=== PATIENT | male | born 1955 | race Caucasian/White ===

== ENCOUNTER 2024-10-25 12:17 | Emergency (ER) | payer BC, SELFPAY ==
--- OUTSIDE RECORDS SUMMARY | 2024-09-16 08:00 | XMS_ITS | Encounter Summary ---
Author Organization [facility] Address [address] [place] [address] Care Team Providers Care Bevel Polisher Name Role Phone Elsewhere, Pcp Primary Care Provider Unavailabl e Reason for Visit * Reason Onset Date Comments Pre-visit Intake 09/16/2024 * Appointment Request (Routine) - Authorized Specialty Diagnoses / Procedures Referred By Contac t Referred To Contact Cardiovascular Disease Referral ID Status Reason Start Date Expiration Date V isits Requested Visits Authorized [id number] Authorized 06/29/2024 09/29/2025 1 1 Encounter Details Date Type Department Care Team (Latest Contact Info) Description 09/16/2024 8:00 AM CDT Clinical Communication Virtual Review in [address] [phone] Pre-visit Intake Social History Tobacco Use Types Packs/Day Years Used Date Smoking Tobacco: Never Smokeless Tobacco: Never Tobacco Cessation:Counseling Given: Not Answered Alcohol Use Standard Drinks/Week Comments Yes 0 (1 standard drink = 0.6 oz pure alcohol) very occasional - too many carbs! [facility] Utilities Answer Date Recorded In the past 12 months has th e [employer], gas, oil, or water [employer] threatened to shut off services in your home? No 09/17/2024 Hunger Vital Sign Answer Date Recorded Within the past 12 months, y ou worried that your food would run out before you got the money to buy more. Never true 09/18/19 25 Within the past 12 months, t he food you bought just didn't last and you didn't have money to get more. Never true 09/17/2024 PRAPARE - Transportation Answer Date Re corded In the past 12 months, has l ack of transportation kept you from medical appointments or from getting medications? No 05/2024 In the past 12 months, has l ack of transportation kept you from meetings, work, or from getting things needed for daily living? No 09/17/2024 Housing Stability Answer Date Recorded What is your living situation today? I have a [facility] place to live 09/17/2024 Sex and Gender Information Value Date Recorded Sex Assigned at Male 07/31/2023 9:29 PM CDT Legal Sex Male 10:14 AM CDT Gender Identity Male 07/31/2023 9:29 PM CDT Sexual Orientation Straight 07/31/2023 9: 29 PM CDT documented as of this encounter Plan of Treatment Upcoming Encounters Date Type Department Care Team (Latest Contact Info) Description 11/09/2024 11:00 AM CDT Appointment Department of Radiology, [facility], in [place], [place] [address] [place] [phone] Eva Wing M.B.B.S., Ph.D. [address] [place] [phone] 11/09/2024 4:30 PM CDT Comprehensive Visit Department of Cardiovascular Surgery in [address] [phone] Jaswant Wheat M.D. [address] [place] [phone] 11/09/2024 5:00 PM CDT Office Visit Department of Cardiovascular Surgery in [address] [phone] documented as of this encounter Visit Diagnoses Not on filedocumented in this encounter Care Teams Bevel Polisher Relationship Specialty Start Date End Date Elsewhere, Pcp PCP - General Internal Medicine 08/02/23 documented as of this encounter
--- OUTSIDE RECORDS SUMMARY | 2024-09-22 09:47 | XMS_ITS | Encounter Summary ---
Author Organization [facility] Address [address] [place] [address] Care Team Providers Care Director Selection And Administration Name Role Phone Elsewhere, Pcp Primary Care Provider Unavailabl e Encounter Details Date Type Department Care Team (Latest Contact Info) Description 09/22/2024 9:47 AM CDT - 09/22/2024 10:57 AM CDT Hospital Encounter Department of Laboratory Medicine and Pathology, [facility] in [place], [place] [address] [place] [phone] Eva Wing M.B.B.S., Ph.D. [address] [place] [phone] Stenosis Aortic Valve Acquired; Diabetes Mellitus Type 2 (HCC); Hypertension Essential Primary; Hyperlipidemia; Asthma Mild Persistent (HCC) Discharge Disposition: Home or Self Care Social History Tobacco Use Types Packs/Day Years Used Date Smoking Tobacco: Never Smokeless Tobacco: Never Alcohol Use Standard Drinks/Week Comments Yes 1 (1 standard drink = 0.6 oz pure alcohol) very occasional - too many carbs! [facility] Utilities Answer Date Recorded In the past 12 months has [employer], gas, oil, or water [employer] threatened to shut off services in your [...] your living situation today? I have a [facility] place to live 09/17/2024 Sex and Gender Information Value Date Recorded Sex Assigned at Male 07/31/2023 9:29 PM CDT Legal Sex Male 10:14 AM CDT Gender Identity Male 07/31/2023 9:29 PM CDT Sexual Orientation Straight 07/31/2023 9: 29 PM CDT documented as of this encounter Medications at Time of Discharge BD Nancy 2nd Gen Pen Needle 32 gauge x 5/32 needle 07/17/2023 calcium carbonate (TUMS) 500 mg (200 mg calcium) chewable tablet Chew 500 mg daily. 01/12/2022 cyanocobalamin (VITAMIN B12) 1,000 mcg tablet Take 1 tablet by mouth daily. 07/11/2016 empagliflozin (Jardiance) 25 mg tablet Take 1 tablet by mouth daily. 03/18/2015 ferrous sulfate 325 mg (65 mg iron) DR tablet Take 325 mg by mouth 4 (four) times a week. 07/11/2016 FreeStyle Juice 3 Sensor device 07/17/2023 insulin glargine-yfgn (Semglee) 100 unit/mL (3 mL) pen Inject 20 Units under the skin. 04/22/2024 lisinopriL (PRINIVIL,ZESTRI L) 20 mg tablet Take 1 tablet by mouth daily. 04/12/2023 lutein 10 mg tablet Take 10 mg by mouth daily. metFORMIN (GLUCOPHAGE) 1,000 mg tablet Take by mouth. 03/18/2015 pioglitazone (ACTOS) 30 mg tablet Take 1 tablet by mouth daily. 03/18/2015 ProAir HFA 90 mcg/actuation inhaler Inhale 90 mcg every 6 (six) hours as needed. 06/01/2016 Qvar RediHaler 80 mcg/actuation inhaler Inhale 2 puffs daily. 03/18/2015 sildenafil (REVATIO) 20 mg tablet use 2-4 tabs every 24 hours as needed for erectile dysfunction 05/14/2019 tirzepatide (Mounjaro) 2.5 mg/0.5 mL pen injector injection Inject 2.5 mg under the skin over 168 hr. 08/17/2024 vit C/E/Zn/coppr/lut ein/zeaxan (PRESERVISION AREDS-2 ORAL) Take 1 tablet by mouth daily. atorvastatin (Lipitor) 80 mg tablet Take 1 tablet by mouth daily. 11/28/2023 glipiZIDE (GLUCOTROL XL) 10 mg 24 hr tablet Take 1 tablet by mouth 2 (two) times a day before breakfast and dinner. 04/12/2023 documented as of this encounter Plan of Treatment Upcoming Encounters Date Type Department Care Team (Latest Contact Info) Description 11/09/2024 11:00 AM CDT Appointment Department of Radiology, [facility], in [place], [place] [address] [place] [phone] Eva Wing M.B.B.S., Ph.D. [address] [place] [phone] 11/09/2024 4:30 PM CDT Comprehensive Visit Department of Cardiovascular Surgery in [address] [phone] Jaswant Wheat M.D. [address] [place] [phone] 11/09/2024 5:00 PM CDT Office Visit Department of Cardiovascular Surgery in [address] [phone] documented as of this encounter Procedures Procedure Name Priority Date/Time Associated Diagnosis Comments LIPID PANEL, S Routine 09/22/2024 10:16 AM CDT Stenosis Aortic Valve Acquired Diabetes Mellitus Type 2 (HCC) Hypertension Essential Primary Hyperlipidemia Asthma Mild Persistent (HCC) NT-PRO B-TYPE NATRIURETIC PEPTIDE (BNP), S Routine 09/22/2024 10:16 AM CDT Stenosis Aortic Valve Acquired Diabetes Mellitus Type 2 (HCC) Hypertension Essential Primary Hyperlipidemia Asthma Mild Persistent (HCC) PROTHROMBIN TIME (PT), P Routine 09/22/2024 10:16 AM CDT Stenosis Aortic Valve Acquired Diabetes Mellitus Type 2 (HCC) Hypertension Essential Primary Hyperlipidemia Asthma Mild Persistent (HCC) CBC WITH DIFFERENTIAL, B Routine 09/22/2024 10:16 AM CDT Stenosis Aortic Valve Acquired Diabetes Mellitus Type 2 (HCC) Hypertension Essential Primary Hyperlipidemia Asthma Mild Persistent (HCC) SODIUM, S/P Routine 09/22/2024 10:16 AM CDT Stenosis Aortic Valve Acquired Diabetes Mellitus Type 2 (HCC) Hypertension Essential Primary Hyperlipidemia Asthma Mild Persistent (HCC) POTASSIUM, S/P Routine 09/22/2024 10:16 AM CDT Stenosis Aortic Valve Acquired Diabetes Mellitus Type 2 (HCC) Hypertension Essential Primary Hyperlipidemia Asthma Mild Persistent (HCC) GLUCOSE, FASTING, S/P Routine 09/22/2024 10:16 AM CDT Stenosis Aortic Valve Acquired Diabetes Mellitus Type 2 (HCC) Hypertension Essential Primary Hyperlipidemia Asthma Mild Persistent (HCC) CREATININE WITH EGFR, S/P Routine 09/22/2024 10:16 AM CDT Stenosis Aortic Valve Acquired Diabetes Mellitus Type 2 (HCC) Hypertension Essential Primary Hyperlipidemia Asthma Mild Persistent (HCC) ALBUMIN, S/P Routine 09/22/2024 10:16 AM CDT Stenosis Aortic Valve Acquired Diabetes Mellitus Type 2 (HCC) Hypertension Essential Primary Hyperlipidemia Asthma Mild Persistent (HCC) documented in this encounter Results * NT-Pro B-Type Natriuretic Peptide (BNP) (09/22/2024 10:16 AM CDT) NT-Pro BNP 55 <=540 pg/mL 09/22/2024 11:26 AM CDT DTL Comment: NT-proBNP values less than 300 pg/mL have a 99% negative predictive value for excluding acute congestive heart failure. A cutoff of 1200 pg/mL for patients with an eGFR<60 yields a diagnostic sensitivity and specificity of 89% and 72% for acute congestive heart failure. A diagnostic NT-proBNP cutoff of 900 pg/mL has been suggested in adults 50-75 years of age in the absence of renal failure. Blood (Blood, Venous) 09/22/2024 10:16 AM CDT 09/22/2024 10:53 AM CDT Eva Carvalho, Ph.D. LAB BLOOD ADD-O N Final Result [facility] [place] [address] [place] [address], [facility] [address] [place] [address] * Lipid Panel (09/22/2024 10:16 AM CDT) Triglycerides 91 mg/dL 09/22/2024 11:26 AM CDT DTL Comment: ----REFERENCE VALUE---- Normal: <150 mg/dL Borderline High: 150-199 mg/dL High: 200-499 mg/dL Very High: > or =500 mg/dL Cholesterol, Total 142 mg/dL 2024 11:26 AM CDT DTL Comment: ----REFERENCE VALUE---- Desirable: < 200 mg/dL Borderline High: 200 - 239 mg/dL High: > or = 240 mg/dL Cholesterol, LDL, Calculated 67 mg/dL 09/22/2024 11:26 AM CDT DTL Comment: ----REFERENCE VALUE---- Desirable: <100 mg/dL Above Desirable: 100-129 mg/dL Borderline High: 130-159 mg/dL High: 160-189 mg/dL Very High: >=190 mg/dL ----ADDITIONAL INFORMATION---- LDL cholesterol calculated using the Birch/NIH equation. Cholesterol, HDL, S 58 >=40 mg/dL 09/22/2024 11:26 AM CDT DTL Cholesterol, Non-HDL, Calculated 84 mg/dL 09/22/2024 11:26 AM CDT DTL Comment: ----REFERENCE VALUE---- Desirable: <130 mg/dL Above Desirable: 130-159 mg/dL Borderline High: 160-189 mg/dL High: 190-219 mg/dL Very High: > or =220 mg/dL Fasting (8 HR or more) Yes 09/22/2024 10:16 AM CDT DTL Blood (Blood, Venous) 09/22/2024 10:16 AM CDT 09/22/2024 10:53 AM CDT Eva Carvalho, Ph.D. LAB BLOOD ADD-O N Final Result [facility] [place] [address] [place] [address], [facility] [address] [place] [address] * (ABNORMAL) CBC with Differential, Blood (09/22/2024 10:16 AM CDT) Hemoglobin 13.8 13.2 - 16.6 g/dL 09/22/2024 11:06 AM CDT DTL Hematocrit 41.1 38.3 - 48.6 % 09/22/2024 11:06 AM CDT DTL Erythrocytes 4.47 4.35 - 5.65 x10(12)/L 09/22/2024 11:06 AM CDT DTL MCV 91.9 78.2 - 97.9 fL 09/22/2024 11:06 AM CDT DTL RBC Distrib Width 13.6 11.8 - 14.5 % 09/22/2024 11:06 AM CDT DTL Platelet Count 274 135 - 317 x10(9)/L 09/22/2024 11:06 AM CDT DTL Leukocytes 8.8 3.4 - 9.6 x10(9)/L 09/22/2024 11:06 AM CDT DTL Neutrophils 5.25 1.56 - 6.45 x10(9)/L 09/22/2024 11:06 AM CDT DHPM Lymphocytes 2.30 0.95 - 3.07 x10(9)/L 09/22/2024 11:06 AM CDT DTL Monocytes 0.71 0.26 - 0.81 x10(9)/L 09/22/2024 11:06 AM CDT DTL Eosinophils 0.50(H) 0.03 - 0.48 x10(9)/L 09/22/2024 11:06 AM CDT DTL Basophils 0.05 0.01 - 0.08 x10(9)/L 09/22/2024 11:06 AM CDT DTL Blood (Blood, Venous) 09/22/2024 10:16 AM CDT 09/22/2024 10:39 AM CDT Eva Carvalho, Ph.D. LAB BLOOD ADD-O N Final Result Performing Organization Address [facility] Co de Phone Number [facility] [place] [address] [facility] [address] 200 [place] [address] * Prothrombin Time (PT) (09/22/2024 10:16 AM CDT) [facility] Prothrombin Time, P 10.9 9.4 - 12.5 sec 09/22/2024 11:02 AM CDT DTL INR 1.0 0.9 - 1.1 09/22/2024 11:02 AM CDT DTL Comment: ----ADDITIONAL INFORMATION---- Standard intensity warfarin therapeutic range: 2.0 to 3.0 High intensity warfarin therapeutic range: 2.5 to 3.5 Blood (Blood, Venous) 09/22/2024 10:16 AM CDT 09/22/2024 10:39 AM CDT us Eva LentzBDavidSDavid, Ph.D. LAB BLOOD ADD-O N Final Result Performing Organization Address City/[facility]/ZIP Co de Phone Number [facility] [place] [address] [facility] 200 [place] [address] * Sodium (09/22/2024 10:16 AM CDT) Sodium, S 140 135 - 145 mmol/L 09/22/2024 11:26 AM CDT DTL Blood (Blood, Venous) 09/22/2024 10:16 AM CDT 09/22/2024 10:53 AM CDT Eva LentzBDavidSDavid, Ph.D. LAB BLOOD ADD-O N Final Result Performing Organization Address City/[facility]/ZIP Co de Phone Number [facility] [place] [address] 200 [place] [address] * Potassium (09/22/2024 10:16 AM CDT) Potassium, S 4.9 3.6 - 5.2 mmol/L 09/22/2024 11:26 AM CDT DTL Blood (Blood, Venous) 09/22/2024 10:16 AM CDT 09/22/2024 10:53 AM CDT Eva LentzB.SDavid, Ph.D. LAB BLOOD ADD-O N Final Result Performing Organization Address City/[facility]/ZIP Co de Phone Number [facility] [place] [address] 200 [place] [address] * (ABNORMAL) Glucose, Fasting (09/22/2024 10:16 AM CDT) Glucose, P 137(H) 70 - 100 mg/dL 09/22/2024 11:32 AM CDT DTL Last Intake 13 hr 09/22/2024 10:53 AM CDT DTL Blood (Blood, Venous) 09/22/2024 10:16 AM CDT 09/22/2024 10:53 AM CDT Eva Carvalho, Ph.D. LAB BLOOD NON A DD-ON Final Result Performing Organization Address City/[facility]/ZIP Co de Phone Number [facility] [place] 200 [place] [address], [facility] 200 [place] [address] * Creatinine with Estimated GFR (09/22/2024 10:16 AM CDT) Creatinine 1.22 0.74 - 1.35 mg/dL 09/22/2024 11:26 AM CDT DTL Estimated GFR (eGFR) 65 >=60 mL/min/BSA 09/22/2024 11:26 AM CDT DT Comment: Estimated GFR calculated using the 2020 CKD_EPI creatinine equation. Blood (Blood, Venous) 09/22/2024 10:16 AM CDT 09/22/2024 10:53 AM CDT Eva Carvalho, Ph.D. LAB BLOOD ADD-O N Final Result Performing Organization Address [facility] Co de Phone Number [facility] [place] 200 [place] [address], [facility] 200 [place] [address] * Albumin (09/22/2024 10:16 AM CDT) Albumin, S 4.3 3.5 - 5.0 g/dL 09/22/2024 11:26 AM CDT DTL Blood (Blood, Venous) 09/22/2024 10:16 AM CDT 09/22/2024 10:53 AM CDT Eva Carvalho, Ph.D. LAB BLOOD ADD-O N Final Result Performing Organization Address City/[facility]/ZIP Co de Phone Number [facility] [place] 200 [place] [phone], [facility] DTL [facility] [place] 200 [place] [address] documented in this encounter Visit Diagnoses Diagnosis Stenosis Aortic Valve Acquired Diabetes Mellitus Type 2 (HCC) Hypertension Essential Primary Hyperlipidemia Asthma Mild Persistent (HCC) documented in this encounter Care Teams Director Selection And Administration Relationship Specialty Start Date End Date Elsewhere, Pcp PCP - General Internal Medicine 08/02/23 documented as of this encounter
--- OUTSIDE RECORDS SUMMARY | 2024-09-22 10:58 | XMS_ITS | Encounter Summary ---
Author Organization [facility] Address [address] [place] [address] Care Team Providers Care Guard Lieutenant Name Role Phone Elsewhere, Pcp Primary Care Provider Unavailabl e Reason for Referral * Outpatient (Routine) - Closed Specialty Diagnoses / Procedures Referred By Contac t Referred To Contact Diagnoses Stenosis Aortic Valve Acquired Diabetes Mellitus Type 2 (HCC) Hypertension Essential Primary Hyperlipidemia Asthma Mild Persistent (HCC) Procedures DX Chest AP or PA and Lateral 2 Views Eva Wing M.B.B.S., Ph.D. [address] [place] [phone] Phone: tel: fax: [facility] Referral ID Status Reason Start Date Expiration Date Visits Re quested Visits Authorized [id number] Closed 06/29/2024 09/29/2025 1 1 Reason for Visit * Outpatient (Routine) - Closed Specialty Diagnoses / Procedures Referred By Contac t Referred To Contact Diagnoses Stenosis Aortic Valve Acquired Diabetes Mellitus Type 2 (HCC) Hypertension Essential Primary Hyperlipidemia Asthma Mild Persistent (HCC) Procedures DX Chest AP or PA and Lateral 2 Views Eva Wing M.B.B.S., Ph.D. [address] [place] [phone] Phone: tel: fax: [facility] Referral ID Status Reason Start Date Expiration Date Visits Re quested Visits Authorized [id number] Closed 06/29/2024 09/29/2025 1 1 Encounter Details Date Type Department Care Team (Latest Contact Info) Description 09/22/2024 10:58 AM CDT - 09/22/2024 12:45 PM CDT Hospital Encounter Department of Radiology, [facility], in [place], [place] [address] [place] [phone] Eva Wing M.B.B.S., Ph.D. [address] [place] [phone] Stenosis Aortic Valve Acquired; Diabetes Mellitus Type 2 (HCC); Hypertension Essential Primary; Hyperlipidemia; Asthma Mild Persistent (HCC) Discharge Disposition: Home or Self Care Social History Tobacco Use Types Packs/Day Years Used Date Smoking Tobacco: Never Smokeless Tobacco: Never Alcohol Use Standard Drinks/Week Comments Yes 1 (1 standard drink = 0.6 oz pure alcohol) very occasional - too many carbs! [facility] Utilities Answer Date Recorded In the past 12 months has [employer], gas, oil, or water [employer] threatened to shut off services in your [...] your living situation today? I have a [facility] place to live 09/17/2024 Sex and Gender [...] 11:00 AM CDT Appointment Department of Radiology, [facility], in [place], [place] [address] [place] [phone] Eva Wing M.B.B.S., Ph.D. [address] [place] [phone] 11/09/2024 4:30 PM CDT Comprehensive Visit Department of Cardiovascular Surgery in [place], [place] [address] [place] [phone] Jaswant Wheat M.D. [address] [place] [phone] 11/09/2024 5:00 PM CDT Office Visit Department of Cardiovascular Surgery in [place], [place] [address] [place] [phone] documented as of this encounter Procedures Procedure Name Priority Date/Time Associated Diagnosis Comments DX CHEST AP OR PA AND LATERAL 2 VIEWS RAD - Routine (most inpatients and all outpatients) 09/22/2024 11:10 AM CDT Stenosis Aortic Valve Acquired Diabetes Mellitus Type 2 (HCC) Hypertension Essential Primary Hyperlipidemia Asthma Mild Persistent (HCC) documented in this encounter Results * DX Chest AP or PA and Lateral 2 Views (09/22/2024 11:10 AM CDT) Anatomical Region Laterality Modality Chest, Thoracic RST LOS, Tho racic ARZ LOS, Thoracic FLA LOS N/A Digital Radiography Impressions 09/22/2024 11:17 AM CDT No substantial change since 08/05/2023. Old healed right rib fracture. Calcified pulmonary granuloma left lower lobe. Chest otherwise negative. Narrative 09/22/2024 11:17 AM CDT EXAM: DX CHEST AP OR PA AND LATERAL 2 VIEWS Procedure Note Shira Hope M.D. - 09/22/2024 EXAM: DX CHEST AP OR PA AND LATERAL 2 VIEWS IMPRESSION: No substantial change since 08/05/2023. Old healed right rib fracture.Calcified pulmonary granuloma left lower lobe. Chest otherwise negative. Eva Carvalho, Ph.D. IMG DIAGNOSTIC IMAGING PROCEDURES Final Result documented in this encounter Visit Diagnoses Diagnosis Stenosis Aortic Valve Acquired Diabetes Mellitus Type 2 (HCC) Hypertension Essential Primary Hyperlipidemia Asthma Mild Persistent (HCC) documented in this encounter Care Teams Guard Lieutenant Relationship Specialty Start Date End Date Elsewhere, Pcp PCP - General Internal Medicine 08/02/23 documented as of this encounter
--- OUTSIDE RECORDS SUMMARY | 2024-09-22 12:46 | XMS_ITS | Encounter Summary ---
Author Organization [facility] Address [address] [place] [address] Care Team Providers Care Garage Door Hanger Name Role Phone Elsewhere, Pcp Primary Care Provider Unavailabl e Reason for Referral * Cardiovascular-Diagnostic (Routine) - Closed Specialty Diagnoses / Procedures Referred By Contac t Referred To Contact Diagnoses Stenosis Aortic Valve Acquired Diabetes Mellitus Type 2 (HCC) Hypertension Essential Primary Hyperlipidemia Asthma Mild Persistent (HCC) Procedures Echo Transthoracic (TTE) Eva Wing M.B.B.S., Ph.D. [address] [place] [phone] Phone: tel: fax: [facility] Referral ID Status Reason Start Date Expiration Date Visits Re quested Visits Authorized [id number] Closed 06/29/2024 09/29/2025 1 1 Reason for Visit * Cardiovascular-Diagnostic (Routine) - Closed Specialty Diagnoses / Procedures Referred By Contac t Referred To Contact Diagnoses Stenosis Aortic Valve Acquired Diabetes Mellitus Type 2 (HCC) Hypertension Essential Primary Hyperlipidemia Asthma Mild Persistent (HCC) Procedures Echo Transthoracic (TTE) Eva Wing M.B.B.S., Ph.D. [address] [place] [phone] Phone: tel: fax: [facility] Referral ID Status Reason Start Date Expiration Date Visits Re quested Visits Authorized [id number] Closed 06/29/2024 09/29/2025 1 1 Encounter Details Date Type Department Care Team (Latest Contact Info) Description 09/22/2024 12:46 PM CDT - 09/22/2024 11:59 PM CDT Hospital Encounter Department of Cardiovascular Diseases in [place], [place] [address] [place] [phone] Eva Wing M.B.B.S., Ph.D. [address] [place] [phone] Stenosis Aortic Valve Acquired; Diabetes Mellitus Type 2 (HCC); Hypertension Essential Primary; Hyperlipidemia; Asthma Mild Persistent (HCC) Discharge Disposition: Home or Self Care Social History Tobacco Use Types Packs/Day Years Used Date Smoking Tobacco: Never Smokeless Tobacco: Never Alcohol Use Standard Drinks/Week Comments Yes 1 (1 standard drink = 0.6 oz pure alcohol) very occasional - too many carbs! [facility] Utilities Answer Date Recorded In the past 12 months has [employer], [employer], oil, or water [employer] threatened to shut off services in your [...] your living situation today? I have a [facility] place to live 09/17/2024 Sex and [...] Take 1 tablet by mouth daily. 11/28/2023 5 glipiZIDE (GLUCOTROL XL) 10 mg 24 hr tablet Take 1 tablet by mouth 2 (two) times a day before breakfast and dinner. 04/12/2023 5 documented as of this encounter Plan of Treatment Upcoming Encounters Date Type Department Care Team (Latest Contact Info) Description 11/09/2024 11:00 AM CDT Appointment Department of Radiology, [facility], in [place], [place] [address] [place] [phone] Eva Wing M.B.B.S., Ph.D. [address] [place] [phone] 11/09/2024 4:30 PM CDT Comprehensive Visit Department of Cardiovascular Surgery in [place], [place] [address] [place] [phone] Jaswant Wheat M.D. [address] [place] [phone] 11/09/2024 5:00 PM CDT Office Visit Department of Cardiovascular Surgery in [place], [place] [address] [place] [phone] documented as of this encounter Procedures Procedure Name Priority Date/Time Associated Diagnosis Comments (TTE) 2D ECHO DOPPLER COLOR Routine 09/22/2024 2:08 PM CDT Stenosis Aortic Valve Acquired Diabetes Mellitus Type 2 (HCC) Hypertension Essential Primary Hyperlipidemia Asthma Mild Persistent (HCC) documented in this encounter Results * (TTE) 2D ECHO DOPPLER COLOR (09/22/2024 2:08 PM CDT) Ejection Fraction 77 MC CV EIMS LV End-Diastolic Diameter 49 MC CV EIMS LV End-Systolic Diameter 25 MC CV EIMS MV E Velocity 0.8 MC CV EIMS MV A Velocity 1.2 MC CV EIMS MV E/A 0.67 MC CV EIMS MV e' Velocity Lateral 0.06 MC CV EIMS MV E/e' Lateral 13.3 MC CV EIMS Left ventricular stroke volume index 52 MC CV EIMS Cardiac Output 5.97 MC CV EIMS Cardiac Index 2.83 MC CV EIMS Estimated RA Pressure (Echo RAP) 5 MC CV EIMS AV mean gradient 49 MC CV EIMS Aortic valve area 1.01 MC CV EIMS Aortic Valve Area Index 0.48 MC CV EIMS Aortic Valve Dimensionless Index 0.27 MC CV EIMS MV mean gradient 2 MC CV EIMS Aortic Valve Systolic Peak Velocity 4.5 MC CV EIMS Anatomical Region Laterality Modality Echocardiography 09/22/2024 12:5 1 PM CDT Impressions 09/22/2024 2:20 PM CDT Echocardiogram performed per left ventricular function protocol. Last full echocardiogram performed 08/05/2023. LEFT VENTRICLE:Normal left ventricular chamber size. Calculated 2-D linear left ventricular ejection fraction 77%. Mid left ventricular peak velocity with Valsalva 3.7 m/sec. Mid left ventricular maximal instantaneous Doppler gradient with Valsalva 55 mm Hg. No regional wall motion abnormalities. Grade 1/3 left ventricular diastolic dysfunction, consistent with low to normal left ventricular filling pressure. RIGHT VENTRICLE:Normal right ventricular chamber size. Normal right ventricular systolic function. Unable to detect peak tricuspid regurgitation velocity for pulmonary artery systolic pressure calculation. ATRIA:Normal left atrial size. Normal right atrial size. CARDIAC VALVES:Trileaflet aortic valve. Severe aortic valve stenosis. Aortic valve systolic mean Doppler gradient 49 mmHg. Aortic valve area by Doppler 1.01 cm2. Cardiology consultation recommended for further evaluation of the aortic valve stenosis. Mild aortic valve regurgitation. Thickened mitral valve. Calcified mitral annulus. Mitral valve diastolic mean Doppler gradient 2 mmHg (heart rate 51 BPM). Trivial mitral valve regurgitation. Normal tricuspid valve. Trivial tricuspid valve regurgitation. OTHER ECHO FINDINGS:Normal inferior vena cava size with normal inspiratory collapse (>50%). No intracardiac mass or thrombus, but the left atrial appendage cannot be visualized adequately with transthoracic echo to exclude thrombus in this location. No pericardial effusion. For the complete report, see the Order-Level Documents. Narrative 09/22/2024 2:20 PM CDT For the complete report, see the Order-Level Documents. Hemodynamics Heart Rate: 55 BPM Blood Pressure: 125 / 70 mmHg ECG: Sinus rhythm Final Impressions 1. Severe aortic valve stenosis, systolic mean Doppler gradient 49 mmHg, valve area by Doppler 1.01 cm2 (indexed valve area 0.48 cm2/m2). 2. Normal left ventricular chamber size, calculated 2-D linear ejection fraction 77% (hyperdynamic ejection fraction). 3. Mid left ventricular maximal instantaneous Doppler gradient with Valsalva 55 mm Hg; dynamic mid-cavity obstruction, no significant obstruction at rest. 4. Grade 1/3 left ventricular diastolic dysfunction, consistent with low to normal left ventricular filling pressure. 5. Normal right ventricular chamber size, normal systolic function. 6. In the absence of a change in clinical status, consensus guidelines recommend a repeat transthoracic echocardiogram in 6-12 months to reevaluate the aortic stenosis. 7. Cardiology consultation recommended for further evaluation of the aortic valve stenosis. 8. Compared to the report of 08/05/2023 the following changes have occurred: the aortic stenosis is now severe. Procedure Note Sandor Jones M.D. - 09/22/2024 For the complete report, see the Order-Level Documents. Hemodynamics Heart Rate: 55 BPM Blood Pressure: 125 / 70 mmHg ECG: Sinus rhythm Final Impressions 1. Severe aortic valve stenosis, systolic mean Doppler gradient 49 mmHg,valve area by Doppler 1.01 cm2 (indexed valve area 0.48 cm2/m2). 2. Normal left ventricular chamber size, calculated 2-D linear ejectionfraction 77% (hyperdynamic ejection fraction). 3. Mid left ventricular maximal instantaneous Doppler gradient withValsalva 55 mm Hg; dynamic mid-cavity obstruction, no significantobstruction at rest. 4. Grade 1/3 left ventricular diastolic dysfunction, consistent with lowto normal left ventricular filling pressure. 5. Normal right ventricular chamber size, normal systolic function. 6. In the absence of a change in clinical status, consensus guidelinesrecommend a repeat transthoracic echocardiogram in 6-12 months toreevaluate the aortic stenosis. 7. Cardiology consultation recommended for further evaluation of theaortic valve stenosis. 8. Compared to the report of 08/05/2023 the following changes haveoccurred: the aortic stenosis is now severe. Findings Echocardiogram performed per left ventricular function protocol. Last fullechocardiogram performed 08/05/2023. LEFT VENTRICLE:Normal left ventricular chamber size. Calculated 2-D linearleft ventricular ejection fraction 77%. Mid left ventricular peak velocitywith Valsalva 3.7 m/sec. Mid left ventricular maximal instantaneousDoppler gradient with Valsalva 55 mm Hg. No regional wall motionabnormalities. Grade 1/3 left ventricular diastolic dysfunction,consistent with low to normal left ventricular filling pressure. RIGHT VENTRICLE:Normal right ventricular chamber size. Normal rightventricular systolic function. Unable to detect peak tricuspidregurgitation velocity for pulmonary artery systolic pressurecalculation. ATRIA:Normal left atrial size. Normal right atrial size. CARDIAC VALVES:Trileaflet aortic valve. Severe aortic valve stenosis.Aortic valve systolic mean Doppler gradient 49 mmHg. Aortic valve area byDoppler 1.01 cm2. Cardiology consultation recommended for furtherevaluation of the aortic valve stenosis. Mild aortic valve regurgitation.Thickened mitral valve. Calcified mitral annulus. Mitral valve diastolicmean Doppler gradient 2 mmHg (heart rate 51 BPM). Trivial mitral valveregurgitation. Normal tricuspid valve. Trivial tricuspid valveregurgitation. OTHER ECHO FINDINGS:Normal inferior vena cava size with normal inspiratorycollapse (>50%). No intracardiac mass or thrombus, but the left atrialappendage cannot be visualized adequately with transthoracic echo toexclude thrombus in this location. No pericardial effusion. For the complete report, see the Order-Level Documents. Eva Carvalho, Ph.D. CV ECHO PROCEDU RES Final Result documented in this encounter Visit Diagnoses Diagnosis Stenosis Aortic Valve Acquired Diabetes Mellitus Type 2 (HCC) Hypertension Essential Primary Hyperlipidemia Asthma Mild Persistent (HCC) documented in this encounter Care Teams Garage Door Hanger Relationship Specialty Start Date End Date Elsewhere, Pcp PCP - General Internal Medicine 08/02/23 documented as of this encounter
--- OUTSIDE RECORDS SUMMARY | 2024-09-23 11:00 | XMS_ITS | Encounter Summary ---
Author Organization [facility] Address [address] [place] [address] Care Team Providers Care Senior Designer/Art Director Name Role Phone Elsewhere, Pcp Primary Care Provider Unavailabl e Reason for Referral * MRI/CAT/PET Scan (Routine) - Authorized Specialty Diagnoses / Procedures Referred By Contac t Referred To Contact Radiology Diagnoses Stenosis Aortic Valve Acquired Diabetes Mellitus Type 2 (HCC) Hypertension Essential Primary Hyperlipidemia Asthma Mild Persistent (HCC) Procedures CT Cardiac Angiogram with Coronary Arteries with IV Contrast Eva Wing M.B.B.S., Ph.D. [address] [place] [phone] Phone: tel: fax: [facility] Referral ID Status Reason Start Date Expiration Date V isits Requested Visits Authorized [id number] Authorized 09/26/2024 12/27/2025 1 1 * Outpatient (Routine) - Authorized Specialty Diagnoses / Procedures Referred By Contac t Referred To Contact Cardiovascular Surgery Diagnoses Stenosis Aortic Valve Acquired Diabetes Mellitus Type 2 (HCC) Hypertension Essential Primary Hyperlipidemia Asthma Mild Persistent (HCC) Eva Wing M.B.B.S., Ph.D. [address] [place] [phone] Phone: tel: fax: [facility] Referral ID Status Reason Start Date Expiration Date V isits Requested Visits Authorized [id number] Authorized 09/26/2024 03/28/2026 [address] Wheat only please. Reason for Visit * Appointment Request (Routine) - Closed Specialty Diagnoses / Procedures Referred By Contac t Referred To Contact Cardiovascular Disease Diagnoses Stenosis Aortic Valve Acquired Eva Wing M.B.B.S., Ph.D. [address] [place] [phone] Phone: tel: fax: Referral ID Status Reason Start Date Expiration Date Visits Re quested Visits Authorized [id number] Closed 06/23/2024 09/23/2025 1 1 Encounter Details Date Type Department Care Team (Latest Contact Info) Description 09/23/2024 11:00 AM CDT Office Visit Department of Cardiovascular Medicine in [place], [place] [address] [place] [phone] Eva Wing M.B.B.S., Ph.D. [address] [place] [phone] Stenosis Aortic Valve Acquired (Primary Dx); Diabetes Mellitus Type 2 (HCC); Hypertension Essential Primary; Hyperlipidemia; Asthma Mild Persistent (HCC) Social History Tobacco Use Types Packs/Day Years Used Date Smoking Tobacco: Never Smokeless Tobacco: Never Alcohol Use Standard Drinks/Week Comments Yes 1 (1 standard drink = 0.6 oz pure alcohol) very occasional - too many carbs! [facility] Utilities Answer Date Recorded In the past 12 months has e [employer], gas, oil, or water [employer] threatened to shut off services in your [...] your living situation today? I have a [place] place to live 09/17/2024 Sex and Gender Information Value Date Recorded Sex Assigned at Male 07/31/2023 9:29 PM CDT Legal Sex Male 10:14 AM CDT Gender Identity Male 07/31/2023 9:29 PM CDT Sexual Orientation Straight 07/31/2023 9: 29 PM CDT documented as of this encounter Last Filed Vital Signs Vital Sign Reading Time Taken Comments Blood Pressure 124/69 09/23/2024 11:08 AM CDT Pulse 60 09/23/2024 11:08 AM CDT Temperature - - Respiratory Rate - - Oxygen Saturation - - Inhaled Oxygen Concentration - - Weight - - Height - - Body Mass Index - - documented in this encounter Consult Notes * Eva Wing M.B.BDavidS., Ph.D. - 09/23/2024 11:00 AM CDT REFERRAL SOURCE Self referred CHIEF COMPLAINT / REASON FOR VISIT Aortic stenosis HISTORY OF PRESENT ILLNESS Mr. Norm Dorsey returns to [facility] today with his for follow up of his aortic stenosis. Briefly, Mr. Dorsey is a very pleasant 69 y.o. 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 Lifelong nonsmoker. Pertinent cardiac medications included Mounjaro (recently started), insulin, Lipitor 40 mg daily, empagliflozin 25 mg daily, lisinopril 20 mg daily, metformin and pioglitazone. Since our last clinic visit, Mr. 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 He has lost 17 pounds in the past year (weighing 92.5 kg today from 100 kg last year); this was intentional through exercise; he has also been started on Mounjaro; I commended him for hisweight loss effort. Otherwise, he reported of doing well and asymptomatic from cardiac standpoint; denies chest pain, dyspnea, syncope, presyncope, palpitation, peripheral edema, PND or orthopnea. Hewalks about 4 miles at a good pace about 4-5 times per week; he has no difficulty climbing 2-3 flights of stairs. He does gardening and yard work for 2-3 hours (with breaks) about once or twice per week and denies any symptoms during this activity. Reported unchanged stamina and energy level. Had right leg sciatica problem last spring but which has now resolved. No new complaints or concerns otherwise. Echo from yesterday which I personally reviewed showed: Severe calcific aortic stenosis with mild regurgitation. Mean aortic gradient 49 mmHg, valve area 1.01 cm^2, index aortic valve area 0.48 cm^2/m^2. LVOT 2.2 cm. Normal LV size. Calculated EF 77%. Dynamic mid LV cavitary obstruction with Valsalva, ANGELA 55 mmHg, no significant obstruction at rest. Grade 1 diastolic dysfunction. Normal RV size and systolic function. Unable to estimate RVSP. Thickened mitral valve. Calcified mitral annulus. Mean mitral gradient 2 mmHg (51 BPM). Trivial mitral regurgitation. Trivial tricuspid regurgitation. Normal central venous pressure. No pericardial effusion. Compared to previous TTE, aortic stenosis is now severe. Noted rapid progression (PAV 4.5 m/sec with MG 49 mmHg from 4.1 m/sec and MG 38 mmHg from last year). MEDICATIONS Current Medications[1] SOCIAL HISTORY Lifelong nonsmoker. Does not consume regular alcohol. 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 Lives at home with his ; has 2 adult children (33 years old son and 36 years old daughter). He is independent with all of his ADLs. REVIEW OF SYSTEMS: REVIEW OF SYSTEMS VITALS Blood Pressure: 124/69; Heart rate 60 beats per minute Height 178 cm, weight 92.5 kg, BSA 2.11, BMI 29.2 PHYSICAL EXAMINATION General: Appears well, per stated age, normal appearing habitus. Pleasant. Pain-free. Cardiovascular Exam: JVP not elevated. Heart sounds dual, regular rate and rhythm, normal S1, reduced A2, 3/6 late-peaking ejection systolic murmur throughout the precordium loudest at the right upper sternal border with Gallavardin phenomenon at the apex. No S3, S4, or RV heave Lungs: Clear bilaterally to auscultation Abdomen: Soft nontender. No organomegaly. Bowel sounds present. Extremities: No peripheral edema DIAGNOSTIC REVIEW EKG: Sinus bradycardia 52 BPM, nonspecific IVCD and ST/T changes. Similar to prior ECG CXR: Normal cardiac size. Calcified pulmonary granuloma at left lower lobe, otherwise negative Labs: Hemoglobin 13.8, white cell count 8.8, platelet 274, INR 1.0, sodium 140, potassium 4.9, creatinine 1.22, EGFR 65. Elevated fasting glucose 137. Albumin 4.3. Normal NT proBNP 55. Total cholesterol 142, HDL 58, LDL 67, triglycerides 71. Normal TSH 3.1, HbA1c 7.5%. ASSESSMENT / PLAN #1 Severe calcific aortic stenosis, reportedly asymptomatic, NYHA FC 1 but rapid progression in the past 12 months; LVOT 2.2 cm #2 Hypertension #3 Hyperlipidemia; 10 year ASCVD risk 27.4% #4 Type 2 diabetes mellitus, HbA1c 7.5% #5 Asthma #6 Overweight, BMI now 29.2 following recent successful intentional weight loss Mr. Dorsey's aortic stenosis has progressed and is now severe. Peak aortic velocity has increased by >0.3 m/sec and mean gradient has increased by >10 mmHg in the past year, suggesting rapidAS disease progression. However he reported of being of asymptomatic from his severe and has normal NT proBNP. We discussed regarding natural history of severe , and treatment options including indication/timing of aortic valve replacement and valve choice (mechanical versus tissue prosthesis). Given rapid progression and low surgical risk, he met a class IIa indication for surgical AVR. However the patient is interested to defer this until Mar 2025 if possible due to work- related reason. As such I would like him to undergo VO2 exercise stress test to ensure that it would be safe for him to do so. Also, at time of surgery, given his relatively young age and relatively small LVOT forbody size (2.2 cm), I would recommend consideration of mechanical AVR with root replacement/enlargem ent to accommodate a larger prosthesis to give him the most durable and best hemodynamic option; I have explained the need of obligatory warfarin anticoagulation therapy in the case of mechanical AVR; he expressed understanding. PLAN: Obtain VO2 exercise stress test to assess exercise capacity and to exclude blood pressure drop withexercise in the context of severe which may indicate presence of occult symptoms. If his VO2 stress test is abnormal, I would like him to be considered for AVR sooner; however if his VO2 stress test is normal, I think it would be reasonable for us to defer the timing of his AVR to March next year. In which case, I would like him to [facility] for a reassessment and surgical visit. Otherwise, I would like him to remain as physically as active as he can be in the meantime. He is to continue on all of his other current cardiac therapy I have asked him to check with his diesel maintenance technician regarding the safety of pioglitazone given potential of increased risk of heart failure Above discussed with Mr. Norm Dorsey who expressed agreement and understanding. I will be in touch with him following completion of his VO2 stress test to determine the next step in his management. It was a great pleasure seeing him at [facility] today. Suma Curiel., Ph.D. 09/23/2024 BILLING: Total time spent with patient was 60 minutes and greater than 50% of that time was spent in counselling and coordination of care. ADDENDUM 25 SEPTEMBER 2024 After further consideration following our meeting, Mr. Dorsey has decided to simply pursue surgical AVR now rather than deferring to next year. As mentioned, although he appeared to be asymptomatic from his severe , he does have rapid progression and with low surgical risk, as such he met aclass IIa indication for surgical AVR. His small LVOT also favors surgical AVR to allow concomitant root enlargement/replacement to accommodate the largest prosthesis possible. We re-discussed regarding his valve choice; he is interested to pursue mechanical AVR to give him the best durability; he understood the need for obligatory warfarin anticoagulation following mechanical AVR. PLAN: Cancel plan for stress test. Obtain CV surgery consultation with Dr. Wheat - I would be grateful if Dr. Wheat could consider him for surgical AVR with mechanical prosthesis (preferably On-X) with concomitant aortic root enlargement/replacement to accommodate the largest prosthesis possible. He is to obtain dental clearance Obtain CT cardiac angiogram with coronary arteries to delineate his coronary anatomy as part of hispre-surgical evaluation. In the meantime, I have asked him to temporarily stop his Mounjaro to prevent loss of muscle mass during his weight loss efforts prior to his cardiac surgery. Suma Curiel., Ph.D. 09/26/2024 [1] Current Medications: tirzepatide (Mounjaro) 2.5 mg/0.5 mL pen injector injection, Inject 2.5 mg under the skin over 168 hr. atorvastatin (Lipitor) 80 mg tablet, Take 1 tablet (80 mg total) by mouth daily. BD Nancy 2nd Gen Pen Needle 32 gauge x /32 needle, calcium carbonate (TUMS) 500 mg (200 mg calcium) chewable tablet, Chew 500 mg daily. cyanocobalamin (VITAMIN B12) 1,000 mcg tablet, Take 1 tablet by mouth daily. empagliflozin (Jardiance) 25 mg tablet, Take 1 tablet by mouth daily. ferrous sulfate 325 mg (65 mg iron) DR tablet, Take 325 mg by mouth 4 (four) times a week. FreeStyle Juice 3 Sensor device, insulin glargine-yfgn (Semglee) 100 unit/mL (3 mL) pen, Inject 20 Units under the skin. lisinopriL (PRINIVIL,ZESTRIL) 20 mg tablet, Take 1 tablet by mouth daily. lutein 10 mg tablet, Take 10 mg by mouth daily. metFORMIN (GLUCOPHAGE) 1,000 mg tablet, Take by mouth. (Patient taking differently: Take by mouth. 1000 in AM 1500 in PM) pioglitazone (ACTOS) 30 mg tablet, Take 1 tablet by mouth daily. ProAir HFA 90 mcg/actuation inhaler, Inhale 90 mcg every 6 (six) hours as needed. Qvar RediHaler 80 mcg/actuation inhaler, Inhale 2 puffs daily. sildenafil (REVATIO) 20 mg tablet, use 2-4 tabs every 24 hours as needed for erectile dysfunction vit C/E/Zn/coppr/lutein/zeaxan (PRESERVISION AREDS-2 ORAL), Take 1 tablet by mouth daily. documented in this encounter Plan of Treatment Upcoming Encounters Date Type Department Care Team (Latest Contact Info) Description 11/09/2024 11:00 AM CDT Appointment Department of Radiology, [facility], in [place], [place] [address] [place] [phone] Eva Wing M.B.B.S., Ph.D. [address] [place] [phone] 11/09/2024 4:30 PM CDT Comprehensive Visit Department of Cardiovascular Surgery in [place], [place] [address] [place] [phone] Jaswant Wheat M.D. [address] [place] [phone] 11/09/2024 5:00 PM CDT Office Visit Department of Cardiovascular Surgery in [place], [place] [address] [place] [phone] Scheduled Orders Name Type Priority Associated Diagnoses Orde r Schedule CT Cardiac Angiogram with Coronary Arteries with IV Contrast Imaging RAD - Routine (most inpatients and all outpatients) Stenosis Aortic Valve Acquired Diabetes Mellitus Type 2 (HCC) Hypertension Essential Primary Hyperlipidemia Asthma Mild Persistent (HCC) Expected: 11/09/2024, Expires: 09/26/2025 Scheduled Referrals Name Type Priority Associated Diagnoses Order Schedule Cardiovascular Surgery - General consult (clinic) Outpatient Referral Routine Stenosis Aortic Valve Acquired Diabetes Mellitus Type 2 (HCC) Hypertension Essential Primary Hyperlipidemia Asthma Mild Persistent (HCC) Expected: 09/29/2024, Expires: 12/27/2025 documented as of this encounter Procedures Procedure Name Priority Date/Time Associated Diagnosis Comments THYROID FUNCTION CASCADE, S Routine 09/22/2024 10:13 AM CDT Stenosis Aortic Valve Acquired Diabetes Mellitus Type 2 (HCC) Hypertension Essential Primary HEMOGLOBIN A1C, B Routine 09/22/2024 10: 13 AM CDT Stenosis Aortic Valve Acquired Diabetes Mellitus Type 2 (HCC) Hypertension Essential Primary documented in this encounter Results * (ABNORMAL) Hemoglobin A1c (09/22/2024 10:13 AM CDT) Hemoglobin A1c, B 7.5(H) 4.0 - 5.6 % 09/23/2024 8:22 AM CDT DTL Comment: Hemoglobin A1c values greater than or equal to 6.5 percent are diagnostic for diabetes mellitus. Diagnosis should be confirmed by repeat testing. In diabetic patients, HbA1c goals should be discussed with healthcare provider. Blood (Blood, Venous) 09/22/2024 10:13 AM CDT 09/23/2024 8:09 AM CDT Eva LentzB.S., Ph.D. LAB BLOOD ADD-O N Final Result Performing Organization Address City/[facility]/ZIP Co de Phone Number [address] [place] [address] * Thyroid Function [place] (09/22/2024 10:13 AM CDT) TSH, Sensitive 3.1 0.3 - 4.2 mIU/L 09/23/2024 9:02 AM CDT DTL Blood (Blood, Venous) 09/22/2024 10:13 AM CDT 09/23/2024 8:23 AM CDT Eva LentzB.S., Ph.D. LAB BLOOD ADD-O N Final Result Performing Organization Address City/[facility]/ZIP Co de Phone Number [facility] [address] [place] [address], [facility] [place] [address] documented in this encounter Visit Diagnoses Diagnosis Stenosis Aortic Valve Acquired- Primary Diabetes Mellitus Type 2 (HCC) Hypertension Essential Primary Hyperlipidemia Asthma Mild Persistent (HCC) documented in this encounter Care Teams Senior Designer/Art Director Relationship Specialty Start Date End Date Elsewhere, Pcp PCP - General Internal Medicine 08/02/23 documented as of this encounter
[2024-10-25] VITALS (22 sets, daily range): BP systolic 125–176; BP diastolic 60–79; PULSE 61–75; RESP 0–26; TEMP 36.1; O2SAT 95–98; BMI 28.6
--- OUTSIDE RECORDS SUMMARY | 2024-10-25 12:19 | XMS_ITS | Encounter Summary ---
Author Organization [facility] Address [address] [place] [phone] Care Team Providers Care Metal Forger'S Assistant Name Role Phone Elsewhere, Pcp Primary Care Provider Unavailabl e Reason for Visit * Reason Onset Date Comments Echo Move Up Request 07/01/2024 Encounter Details Date Type Department Care Team (Latest Contact Info) Description 07/01/2024 Clinical Communication Department of Cardiovascular Medicine in [place], [place] [address] [place] [phone] Eva Wing M.B.BDavidS., Ph.D. [address] [place] [phone] Echo Move Up Request Social History Tobacco Use Types Packs/Day Years Used Date Smoking Tobacco: Never Smokeless Tobacco: Never Alcohol Use Standard Drinks/Week Comments Yes 0 (1 standard drink = 0.6 oz pure alcohol) very occasional - too many carbs! [facility] Utilities Answer Date Recorded In the past 12 months has [employer], gas, oil, or water [employer] threatened to shut off services in your [...] your living situation today? I have a [facility] place to live 09/17/2024 Sex and [...] 11:00 AM CDT Appointment Department of Radiology, [facility], in [place], [place] [address] [place] [phone] Eva Wing M.B.B.S., Ph.D. [address] [place] [phone] 11/09/2024 4:30 PM CDT Comprehensive Visit Department of Cardiovascular Surgery in [address] [phone] Jaswant Wheat M.D. [address] [place] [phone] 11/09/2024 5:00 PM CDT Office Visit Department of Cardiovascular Surgery in [address] [phone] documented as of this encounter Visit Diagnoses Not on filedocumented in this encounter Care Teams Metal Forger'S Assistant Relationship Specialty Start Date End Date Elsewhere, Pcp PCP - General Internal Medicine 08/02/23 documented as of this encounter
--- OUTSIDE RECORDS SUMMARY | 2024-10-25 12:20 | XMS_ITS | Clinical Summary ---
Author Organization [facility] Address [address] [place] [address] Care Team Providers Care Scientific Laboratory Supervisor Name Role Phone Elsewhere, Pcp Primary Care Provider Unavailabl e Source Comments Patient records contain information from all sites at [facility]. For routine questions regarding patient records, call [phone] during business hours, M-F 8:00 AM - 5:00 PM Central Time. Record requests for emergency care only can be directed to [phone] at any time.[facility] Allergies Active Allergy Reactions Criticality Noted Date Comments Dulaglutide Nausea Only 01/18/2018 Sitagliptin Nausea And Vomiting 07/03/2018 Medications * This document contains information received from the source organization and may not represent a complete record from that organization. ProAir HFA 90 mcg/actuation inhaler Inhale 90 mcg every 6 (six) hours as needed. 7 Active Qvar RediHaler 80 mcg/actuation inhaler Inhale 2 puffs daily. 6 Active FreeStyle Juice 3 Sensor device 4 Active calcium carbonate (TUMS) 500 mg (200 mg calcium) chewable tablet Chew 500 mg daily. 2 Active cyanocobalamin (VITAMIN B12) 1,000 mcg tablet Take 1 tablet by mouth daily. 7 Active empagliflozin (Jardiance) 25 mg tablet Take 1 tablet by mouth daily. 6 Active ferrous sulfate 325 mg (65 mg iron) DR tablet Take 325 mg by mouth 4 (four) times a week. 7 Active lisinopriL (PRINIVIL,ZESTR IL) 20 mg tablet Take 1 tablet by mouth daily. 4 Active lutein 10 mg tablet Take 10 mg by mouth daily. Active metFORMIN (GLUCOPHAGE) 1,000 mg tablet Take by mouth. 6 Active BD Nancy 2nd Gen Pen Needle 32 gauge x 5/32 needle 4 Active pioglitazone (ACTOS) 30 mg tablet Take 1 tablet by mouth daily. 6 Active sildenafil (REVATIO) 20 mg tablet use 2-4 tabs every 24 hours as needed for erectile dysfunction 0 Active vit C/E/Zn/coppr/gregoria tein/zeaxan (PRESERVISION AREDS-2 ORAL) Take 1 tablet by mouth daily. Active tirzepatide (Mounjaro) 2.5 mg/0.5 mL pen injector injection Inject 2.5 mg under the skin over 168 hr. 5 Active insulin glargine-yfgn (Semglee) 100 unit/mL (3 mL) pen Inject 20 Units under the skin. 5 Active atorvastatin (Lipitor) 80 mg tablet Take 1 tablet (80 mg total) by mouth daily. 90 tablet 3 5 Active Encounters * This document contains information received from the source organization and may not represent a complete record from that organization. Date Type Department Care Team Description 09/23/2024 11:00 AM CDT Office Visit Department of Cardiovascular Medicine in [place], [place] [address] [place] [phone] Eva Wing M.B.B.S., Ph.D. Stenosis Aortic Valve Acquired (Primary Dx); Diabetes Mellitus Type 2 (HCC); Hypertension Essential Primary; Hyperlipidemia; Asthma Mild Persistent (HCC) 09/22/2024 12:46 PM CDT - 09/22/2024 11:59 PM CDT Hospital Encounter Department of Cardiovascular Diseases in [place], [place] [address] [place] [address] Eva Wing M.B.B.S., Ph.D. Stenosis Aortic Valve Acquired; Diabetes Mellitus Type 2 (HCC); Hypertension Essential Primary; Hyperlipidemia; Asthma Mild Persistent (HCC) Discharge Disposition: Home or Self Care 09/22/2024 10:58 AM CDT - 09/22/2024 12:45 PM CDT Hospital Encounter Department of Radiology, [facility] in [place], [place] [address] [place] [phone] Eva Wing M.B.BLeandro, Ph.D. Stenosis Aortic Valve Acquired; Diabetes Mellitus Type 2 (HCC); Hypertension Essential Primary; Hyperlipidemia; Asthma Mild Persistent (HCC) Discharge Disposition: Home or Self Care 09/22/2024 9:47 AM CDT - 09/22/2024 10:57 AM CDT Hospital Encounter Department of Laboratory Medicine and Pathology, [facility] in [place], [place] [address] [place] [phone] Eva Wing M.B.B.S., Ph.D. Stenosis Aortic Valve Acquired; Diabetes Mellitus Type 2 (HCC); Hypertension Essential Primary; Hyperlipidemia; Asthma Mild Persistent (HCC) Discharge Disposition: Home or Self Care 09/16/2024 8:00 AM CDT Clinical Communication Virtual Review in [place], [place] [address] [place] [address] Pre-visit Intake from Last 3 Months Family History Medical History Relation Name Comments Parkinson disease Brother Jona Diabetes Father Juan Hypertension Father Juan Depression Mother Elvira Diabetes Mother Elvira Parkinson disease Mother Elvira Diabetes Sister Roma Relation Name Status Comments Brother Jona Alive Father Juan Mother Elvira Sister Roma Social History Tobacco Use Types Packs/Day Years Used Date Smoking Tobacco: Never Smokeless Tobacco: Never Tobacco Cessation:Counseling Given: Not Answered Alcohol Use Standard Drinks/Week Comments Yes 1 (1 standard drink = 0.6 oz pure alcohol) very occasional - too many carbs! [facility] Utilities Answer Date Recorded In the past 12 months has [employer], gas, oil, or water [employer] threatened to shut off services in your [...] your living situation today? I have a [facility] place to live 09/17/2024 Sex and Gender Information Value Date Recorded Sex Assigned at Male 07/31/2023 9:29 PM CDT Legal Sex Male 10:14 AM CDT Gender Identity Male 07/31/2023 9:29 PM CDT Sexual Orientation Straight 07/31/2023 9: 29 PM CDT Last Filed Vital Signs Vital Sign Reading Time Taken Comments Blood Pressure 124/69 09/23/2024 11:08 AM CDT Pulse 60 09/23/2024 11:08 AM CDT Temperature - - Respiratory Rate - - Oxygen Saturation - - Inhaled Oxygen Concentration - - Weight - - Height - - Body Mass Index - - Plan of Treatment Upcoming Encounters Date Type Department Care Team (Latest Contact Info) Description 11/09/2024 11:00 AM CDT Appointment Department of Radiology, [facility], in [place], [place] [address] [place] [phone] Eva Wing M.B.B.S., Ph.D. [address] [place] [phone] 11/09/2024 4:30 PM CDT Comprehensive Visit Department of Cardiovascular Surgery in [address] [phone] Jaswant Wheat M.D. [address] [place] [phone] 11/09/2024 5:00 PM CDT Office Visit Department of Cardiovascular Surgery in [address] [phone] Health Maintenance Due Date Last Done Comments CT Colonography 1955 Cologuard 1955 FIT 1955 Hepatitis C Screening 1955 Pneumococcal vaccine (50+ years) (2 of 2 - PCV) 03/09/2011 03/09/2010 Depression Screening (Annual PHQ-2) 03/18/2024 COVID-19 Vaccine ( season) 2024 01/13/2024, 01/22/2023, 01/22/2022, Additional history exists Influenza Vaccine (#1) 2024 , 01/22/2023, 01/22/2022, Additional history exists Creatinine Level (Kidney Function Test) 09/22/2025 09/22/2024, 11/27/2023, 08/05/2023, Additional history exists Potassium Level 09/22/2025 09/22/2024, 11/16, 08/05/2023, Additional history exists Sodium Level 09/22/2025 09/22/2024, 11/16, 08/05/2023, Additional history exists Fasting Glucose for Diabetes Screening 09/23/2027 09/22/2024, 09/22/2024, 11/27/2023, Additional history exists DTaP,Tdap,and Td Vaccines (3 - Td or Tdap) 12/07/2029 12/08/2019, 07/10/2012, 08/13/2003 Colonoscopy 08/19/2033 08/20/2023 Colorectal Cancer Screening 08/19/2033 Zoster Vaccines Completed 02/13/2018, 11/15/2017 RSV vaccine - (32-36 weeks) or 60+ years Completed 01/22/2023 Fall Risk Screen (Annual) Completed 09/23/2024 IPV Vaccines Aged Out No longer eligi ble based on patient's age to complete this topic Medical Devices Implanted Type Area Real Estate Photographer Device Identifier Shelf Expiration Date Model / Serial / Lot Cont Glucose Monitoring (Cgm) Cont Glucose Monitoring (CGM) Bilatera l: Arm Procedures Procedure Name Priority Date/Time Associated Diagnosis Comments (TTE) 2D ECHO DOPPLER COLOR Routine 09/22/2024 2:08 PM CDT Stenosis Aortic Valve Acquired Diabetes Mellitus Type 2 (HCC) Hypertension Essential Primary Hyperlipidemia Asthma Mild Persistent (HCC) DX CHEST AP OR PA AND LATERAL 2 VIEWS RAD - Routine (most inpatients and all outpatients) 09/22/2024 11:10 AM CDT Stenosis Aortic Valve Acquired Diabetes Mellitus Type 2 (HCC) Hypertension Essential Primary Hyperlipidemia Asthma Mild Persistent (HCC) ECG Routine 09/22/2024 10:37 AM CDT Stenosis Aortic Valve Acquired Diabetes Mellitus Type 2 (HCC) Hypertension Essential Primary Hyperlipidemia Asthma Mild Persistent (HCC) NT-PRO B-TYPE NATRIURETIC PEPTIDE (BNP), S Routine 09/22/2024 10:16 AM CDT Stenosis Aortic Valve Acquired Diabetes Mellitus Type 2 (HCC) Hypertension Essential Primary Hyperlipidemia Asthma Mild Persistent (HCC) LIPID PANEL, S Routine 09/22/2024 10:16 AM [...] Essential Primary Hyperlipidemia Asthma Mild Persistent (HCC) HEMOGLOBIN A1C, B Routine 09/22/2024 10: 13 AM CDT Stenosis Aortic Valve Acquired Diabetes Mellitus Type 2 (HCC) Hypertension Essential Primary THYROID FUNCTION CASCADE, S Routine 09/22/2024 10:13 AM CDT Stenosis Aortic Valve Acquired Diabetes Mellitus Type 2 (HCC) Hypertension Essential Primary from Last 3 Months Results * (TTE) 2D ECHO DOPPLER COLOR [...] Ph.D. CV ECHO PROCEDU RES Final Result * DX Chest AP or PA and [...] Ph.D. IMG DIAGNOSTIC IMAGING PROCEDURES Final Result * ECG 12 Lead (09/22/2024 10:37 AM CDT) Ventricular Rate ECG/Min 52 BPM MUSE OR Interval 166 ms MUSE QRSD Interval 114 ms MUSE QT Interval 458 ms MUSE QTC Interval 425 ms MUSE P [place] 52 degrees MUSE R [place] -22 degrees MUSE T Wave [place] 41 degrees MUSE 09/22/2024 10:3 7 AM CDT 09/22/2024 11:30 AM CDT Impressions MUSE - 09/22/2024 10:59 AM CDT Sinus bradycardia Cannot rule out Anteroseptal infarct Minimal voltage criteria for LVH, may be normal variant Non-specific intra-ventricular conduction delay Nonspecific ST and T wave abnormality When compared with ECG of 05-Aug-2023 09:09, No significant change was found Revised Report Narrative Procedure Note Mack Nunez M.D. - 09/22/2024 IMPRESSION: Sinus bradycardia Cannot rule out Anteroseptal infarct Minimal voltage criteria for LVH, may be normal variant Non-specific intra-ventricular conduction delay Nonspecific ST and T wave abnormality When compared with ECG of 05-Aug-2023 09:09, No significant change was found Revised Report us Eva Carvalho, Ph.D. ECG ORDERABLES Edited Result - Final MUSE NA * Lipid Panel (09/22/2024 10:16 AM CDT) [...] ADD-O N Final Result Performing Organization Address [facility] [place] [address] * NT-Pro B-Type Natriuretic Peptide (BNP) (09/22/2024 [...] ADD-O N Final Result Performing Organization Address [facility] Co de Phone Number [facility] [address] [place] [address], [facility] [place] [address] * Prothrombin Time (PT) (09/22/2024 10:16 AM CDT) Prothrombin Time, P 10.9 9.4 - 12.5 sec 09/22/2024 11:02 AM CDT DTL INR 1.0 0.9 - 1.1 09/22/2024 11:02 AM CDT DTL Comment: ----ADDITIONAL INFORMATION---- Standard intensity warfarin therapeutic range: 2.0 to 3.0 High intensity warfarin therapeutic range: 2.5 to 3.5 Blood (Blood, Venous) 09/22/2024 10:16 AM CDT 09/22/2024 10:39 AM CDT Eva Carvalho, Ph.D. LAB BLOOD ADD-O N Final Result [address] [place] [address] * (ABNORMAL) CBC with Differential, Blood (09/22/2024 10:16 AM CDT) Pathologist [facility] Hemoglobin 13.8 13.2 - 16.6 g/dL 09/22/2024 [...] ADD-O N Final Result Performing Organization Address City/[facility]/ZIP Co de Phone Number [facility] [address] [place] [address], [facility] [address] [place], [place] [id number] [place] [address] [address] [place] [address] * Sodium (09/22/2024 10:16 AM CDT) Sodium, S 140 135 - 145 mmol/L 09/22/2024 11:26 AM CDT DTL Blood (Blood, Venous) 09/22/2024 10:16 AM CDT 09/22/2024 10:53 AM CDT us Eva Carvalho, Ph.D. LAB BLOOD ADD-O N Final Result [facility] [address] [place] [address], [facility] [address] [place] [address] * Potassium (09/22/2024 10:16 AM CDT) Potassium, S 4.9 3.6 - 5.2 mmol/L 09/22/2024 11:26 AM CDT DTL Blood (Blood, Venous) 09/22/2024 10:16 AM CDT 09/22/2024 10:53 AM CDT Eva LentzBGlen., Ph.D. LAB BLOOD ADD-O N Final Result Performing Organization Address [facility] Co de Phone Number [facility] [address] [place] [address], [facility] [address] [place] [address] * (ABNORMAL) Glucose, Fasting (09/22/2024 10:16 AM CDT) Glucose, P 137(H) 70 - 100 mg/dL 09/22/2024 11:32 AM CDT DTL Last Intake 13 hr 09/22/2024 10:53 AM CDT DTL Blood (Blood, Venous) 09/22/2024 10:16 AM CDT 09/22/2024 10:53 AM CDT Eva LentzB.S., Ph.D. LAB BLOOD NON A DD-ON Final Result Performing Organization Address [facility] Co de Phone Number [facility] [address] [place] [address], [facility] [address] [place] [address] * Creatinine with Estimated GFR (09/22/2024 10:16 AM CDT) Creatinine 1.22 0.74 - 1.35 mg/dL 09/22/2024 11:26 AM CDT DTL Estimated GFR (eGFR) 65 >=60 mL/min/BSA 09/22/2024 11:26 AM CDT DTL Comment: Estimated GFR calculated using the 2020 CKD_EPI creatinine equation. Blood (Blood, Venous) 09/22/2024 10:16 AM CDT 09/22/2024 10:53 AM CDT Eva Carvalho, Ph.D. LAB BLOOD ADD-O N Final Result [facility] [address] [place] [address] * Albumin (09/22/2024 10:16 AM CDT) Albumin, S 4.3 3.5 - 5.0 g/dL 09/22/2024 11:26 AM CDT DT Blood (Blood, Venous) 09/22/2024 10:16 AM CDT 09/22/2024 10:53 AM CDT Eva Carvalho, Ph.D. LAB BLOOD ADD-O N Final Result Performing Organization Address City/[facility]/ZIP Co de Phone Number [facility] [address] [place] [address] * Thyroid Function [place] (09/22/2024 10:13 AM CDT) TSH, Sensitive 3.1 0.3 - 4.2 mIU/L 09/23/2024 9:02 AM CDT DTL Blood (Blood, Venous) 09/22/2024 10:13 AM CDT 09/23/2024 8:23 AM CDT Eva Carvalho, Ph.D. LAB BLOOD ADD-O N Final Result [facility] [address] [place] [address] * (ABNORMAL) Hemoglobin A1c (09/22/2024 10:13 AM [...] AM CDT 09/23/2024 8:09 AM CDT Eva Carvalho, Ph.D. LAB BLOOD ADD-O N Final Result [address] [address], [facility] DTL [facility] [address] [place] [address] from Last 3 Months Insurance MEDICARE [facility] Care Teams Scientific Laboratory Supervisor Relationship Specialty Start Date End Date Elsewhere, Pcp PCP - General Internal Medicine 08/02/23
--- OUTSIDE RECORDS SUMMARY | 2024-10-25 12:20 | XMS_ITS | Clinical Summary ---
Author Organization [employer] [facility] [employer] Address [address] [place] [id number] Care Team Providers Care Neurodiagnostic Tech Name Role Phone Adi Mitchell MD Unavailable [phone] Rich Barrett MD Primary Care Provider [phone] Allergies Active Allergy Reactions Criticality Noted Date Comments Sitagliptin Nausea And Vomiting 07/03/2018 Dulaglutide Nausea Only 01/18/2018 Medications ferrous sulfate 325 mg delayed release tablet Take 325 mg by mouth once daily. 4 times weekly 0 07/12/19 17 Active cyanocobalamin (VITAMIN B-12) 1,000 mcg tablet Take 1 tablet by mouth once daily. 0 07/12/19 17 Active PROAIR HFA 90 mcg/actuation inhaler Inhale 90 mcg by mouth once daily. 06/02/19 17 Active QVAR REDIHALER 40 mcg/actuation HFAb 09/12/19 18 Active calcium carbonate (Tums) 200 mg calcium (500 mg) chewable tablet Chew 1 Tablet (500 mg) by mouth once daily. 0 01/13/20 22 Active Lutein 10 mg tablet Take by mouth. Activ e atorvastatin (LIPITOR) 40 mg tabletIndications: Mixed hyperlipidemia Take 1 Tablet (40 mg) by mouth once daily. 11/28/19 24 Active sildenafiL, pulm.hypertension, (REVATIO) 20 mg tabletIndications: Erectile dysfunction, unspecified erectile dysfunction type use 2-4 tabs every 24 hours as needed for erectile dysfunction 50 Tablet 3 03/09/20 24 Active insulin glargine-yfgn, U-100, (Semglee,insulin glarg-yfgn,Pen) 100 unit/mL (3 mL) penIndications:Adenike betes mellitus type 2 in nonobese (HC) Inject 20 units subcutaneous once daily in the morning. 30 mL 3 04/22/19 25 Active lisinopriL 20 mg tabletIndications: Hypertension, unspecified type TAKE 1 TABLET DAILY 90 Tablet 1 06/08/19 25 Active tirzepatide (Mounjaro) 2.5 mg/0.5 mL penIndications:Con trolled type 2 diabetes mellitus without complication, with long-term current use of insulin (HC) Inject 2.5 mg subcutaneous once weekly. 08/18/19 25 Active empagliflozin (Jardiance) 25 mg tabletIndications: Diabetes mellitus type 2 in nonobese (HC) TAKE 1 TABLET DAILY 90 Tablet 1 09/22/19 25 Active metFORMIN 1,000 mg tabletIndications: Diabetes mellitus type 2 in nonobese (HC) TAKE 1 TABLET ONCE DAILY EVERY MORNING WITH A MEAL AND ONE AND ONE-HALF TABLETS ONCE DAILY WITH EVENING MEAL 225 Tablet 1 09/22/19 25 Active FreeStyle Juice 3 Sensor for continuous blood glucose monitor (CGM)Indications:T ype 2 diabetes mellitus without complication, with long-term current use of insulin (HC) USE TO READ BLOOD SUGARS, FOLLOW FIBRE COMPOSITE TECHNICIAN DIRECTIONS 6 Each 3 09/22/19 25 Active pen needle (Nancy 2nd Gen Pen Needle) 32 gauge x 5/32 (disposable insulin pen needle)Indications :Diabetes mellitus type 2 in nonobese (HC) USE ONE PEN NEEDLE DAILY DIRECTED 100 Each 3 09/22/19 25 Active glipiZIDE extended-release (GLUCOTROL XL) 10 mg Extended-Release tabletIndications: Diabetes mellitus type 2 in nonobese (HC) Take 1 Tablet (10 mg) by mouth once daily before a meal. 90 Tablet 3 10/06/19 25 Active pioglitazone 30 mg tabletIndications: Controlled type 2 diabetes mellitus without complication, with long-term current use of insulin (HC) TAKE 1 TABLET DAILY 90 Tablet 1 07/15/19 25 025 Discontin ued(*Med complete/ Regimen complete/ Level of care change) Active Problems Problem Noted Date Diagnosed Date Moderate aortic stenosis 08/14/2023 Overview (08/14/2023): May 2023, new systolic murmur. July 20[facility] for consult, medical management for moderately severe calcific aortic stenosis. Systolic murmur 05/08/2023 Overview (08/14/2023): April 2023: New murmur, echocardiogram ordered. May 2023: Echocardiogram shows moderate aortic stenosis. Cardiology consult ordered. July 2023: [facility] for consult, medical management for moderately severe calcific aortic stenosis. B12 deficiency 04/23/2017 Mixed hyperlipidemia 07/10/2012 Hypogonadism male 06/30/2010 Hypertension 07/19/2009 Screen for colon cancer 04/05/2009 Overview (08/20/2023): Colonoscopy 03/2009 normal repeat in 10 years Colonoscopy 08/2023 normal, repeat in 10 years Diabetes mellitus type 2 in nonobese 11/19/2008 Unspecified asthma(493.90) 09/04/2006 Encounters Date Type Department Care Team Description 09/22/2024 Orders Only [facility] Scanner 1 scan: (1-Ord) [facility], DX CHEST AP OR PA AND LATERAL 2VWS, 09/22/2024 09/20/2024 Refill [facility] [address] [place] [address] Adi Mitchell MD Refill Request (Jardiance, Metformin, Freestyle Juice 3 Sensor, Nancy 2nd Gen Pen Needle) 08/17/2024 8:25 AM CDT Office Visit [facility] [address] [place] [address] Adi Mitchell MD Diabetes (9 month follow up) 08/17/2024 Travel 08/12/2024 Travel from Last 3 Months Immunizations Immunization Administration Dates Next Due AMB INFLUENZA, IIV4 (AGE=>6M OS) MDV (Flu Clinic Only) 03/01/2019 AMB Influenza, IIV3 (Age >=3 years)(Flu Clinic Only) 01/09/2013,01/03/2012 AMB Influenza, IIV4 PF (=>6 mos Flulaval,Fluzone Fluarix)(Flu Clinic Only) 12/22/2016,01/03/2016,12/28/2013 COVID-19 vaccine (LaunchRock NTHeartbeat 30mcg/0.3mL) PF, MDV 02/03/2021 HepA-HepB (Twinrix) 11/09/2014,08/27/2014 Hepatitis B (Adult) 04/08/2015 Influenza A (H1N1), Inactivated 02/23/2009 Influenza A (H1N1), Inactiva brandee (Age >=3 Years) 02/23/2009 Influenza, High-dose Inactivated 01/13/2024 Influenza, High-dose Quadriv alent Inactivated 01/22/2022 Influenza, IIV3 (Age 6-35 mos) 11/17/2010,2009,02/16/2009 Influenza, IIV3 (Age >=3 years) 01/10/20 13,01/03/2012,11/17/2010,11/25,02/02/2006,01/23/2006,02/13/2005 Influenza, IIV4 12/08/2019, 8,01/03/2016,11/09,12/28/2013 Influenza, Inactivated AIIV4 (Age 65+ Years) Preserv Free 01/22/2023 Influenza,CCIIV4 PRESERV FREE 03/01/2019 Pneumococcal Poly,23-Valent (Pneumovax) 03/09/2010 RSV, Recombinant ADJ Reconst ituted (Arexvy 120MCG/0.5mL) 01/22/2023 Td (Age >=7 Years) 08/13/2003,08/12/2003 Tdap 12/08/2019,07/10/2012 Zoster (Shingrix-RZV, recombinant) 02/13/2018, Family History Medical History Relation Name Comments Parkinsonism Brother Diabetes Father Hypertension Father Diabetes Mother Parkinsonism Mother Stroke Paternal Grandfather Diabetes Sister Relation Name Status Comments Brother Father Mother Paternal Grandfather Sister Social History Tobacco Use Types Packs/Day Years Used Date Smoking Tobacco: Never Smokeless Tobacco: Never Tobacco Cessation:Counseling Given: Yes Alcohol Use Standard Drinks/Week Comments Yes 0 (1 standard drink = 0.6 oz pur e alcohol) 3-4 glasses of wine per month PHQ-2 Answer Date Recorded PHQ-2 TOTAL SCORE 0 05/03/2023 Financial Resource Strain Answer Date R ecorded Difficulty of Paying Living Expenses Not on file 03/18/2021 Difficulty of Paying Living Expenses Not on file 03/18/2021 Sex and Gender Information Value Date Recorded Sex Assigned at Male 09/07/2019 8:09 AM CDT Legal Sex Male 5:26 AM TRIALS MANAGER Gender Identity Male 09/07/2019 8:09 AM CDT Sexual Orientation Not on file Obstetrics History Last Filed Vital Signs Vital Sign Reading Time Taken Comments Blood Pressure 120/68 08/17/2024 8:05 AM CDT Pulse 60 08/17/2024 8:05 AM CDT Temperature 36.3 C (97.4 F) 02/28/2018 11:04 AM TRIALS MANAGER Respiratory Rate 12 08/20/2023 9:30 AM CDT Oxygen Saturation 97% 08/20/2023 9:30 AM CDT Inhaled Oxygen Concentration - - Weight 93.4 kg (206 lb) 08/17/2024 8:05 AM CDT Height 178.9 cm (5' 10.43) 08/17/2024 8:05 AM C DT Body Mass Index 29.2 08/17/2024 8:05 AM CDT Plan of Treatment Upcoming Encounters Date Type Department Care Team (Late st Contact Info) Description 02/18/2025 8:25 AM TRIALS MANAGER Office Visit [facility] [address] [facility] [address] [place] [address] Adi Mitchell MD [address] [facility] [address] [place] [address] Health Maintenance Due Date Last Done Comments Pneumococcal series for age 50+ (2 of 2 - PCV) 03/09/2011 03/09/2010 Fecal testing non-DNA (FIT,FOBT,iFOBT) for age 45-75 01/10/2021 01/11/2020 Depression screening for age 12+ 05/06/2024 05/06/2023, 05/06/2023, 11/15/2017, Additional history exists COVID-19 vaccine series ( season) 2024 01/13/2024, 01/22/2023, 01/22/2022, Additional history exists Influenza Vaccine (#1) 2024 , 01/22/2023, 12/08/2019, Additional history exists BMI (ht and wt on same day) for age 18+ 08/17/2025 08/17/2024, 11/28/2023, 05/06/2023, Additional history exists Lipids for age 45-75 08/17/2029 08/17/2024, 11/27/2023, 12/04/2022, Additional history exists Tetanus booster 12/07/2029 12/08/2019, 06/17, 08/13/2003, Additional history exists Hepatitis B series for 19+ Completed 04/08, 11/09/2014, 08/27/2014 Zoster (shingles) series for age 50+ Completed 02/13/2018, 11/15/2017 RSV vaccine for adults or Completed 01/22/2023 Hepatitis C screening for ag e 18-79 Completed 11/27/2023 Procedures Procedure Name Priority Date/Time Associated Diagnosis Comments SCAN-RADIOLOGY REPORT 09/22/2024 12:00 AM CDT URINE ALBUMIN TO CREATININE RATIO, RANDOM Routine 08/17/2024 8:58 AM CDT Controlled type 2 diabetes mellitus without complication, with long-term current use of insulin (HC) FRUCTOSAMINE Routine 08/17/2024 8:49 AM CDT Diabetes mellitus type 2 with neurological manifestations (HC) BASIC METABOLIC PANEL Routine 08/17/2024 8:49 AM CDT Hypertension, unspecified type HEMOGLOBIN A1C Routine 08/17/2024 8:49 AM CDT Controlled type 2 diabetes mellitus without complication, with long-term current use of insulin (HC) LIPID PANEL W REFLEX MEASURED LDL Routine 08/17/2024 8:49 AM CDT Mixed hyperlipidemia ANTI HCV Routine 11/27/2023 7:08 AM CDT Need for hepatitis C screening test OCCULT BLOOD IFOBT STOOL Routine 01/11/2020 11:08 AM CDT Screening for colorectal cancer from Last 3 Months or Most Recently Relevant to Health Maintenance Results * SCAN-RADIOLOGY REPORT (09/22/2024 12:00 AM CDT) Anatomical Region Laterality Modality Other us Scanner OTHER Final Result * URINE ALBUMIN TO CREATININE RATIO, RANDOM (08/17/2024 8:58 AM CDT) ALB RAND URINE <12.0 mg/L 08/18/2024 1:03 AM CDT [facility] CREATININE,URINE 0.94 g/L 08/19/19 1:03 AM CDT [facility] ALBUMIN TO CREATININE RATIO,RAND UR 08/18/2024 1:03 AM CDT [facility] Comment:Urine Albumin below measurement range, unable to calculate. Urine URINE SPECIMEN / Unknown Non-Blood / Unknown 08/17/2024 8:58 AM CDT 08/17/2024 8:58 AM CDT Narrative [facility] - 08/18/2024 1:03 AM CDT If Albumin to Creatinine Ratio is elevated, consider the following: Elevations seen with incipient nephropathy associated with diabetes mellitus or hypertension. Stress, exercise,hematuria, and urinary tract infection may also produce elevated results. If clinically indicated, confirm with 24 Hour Albumin to Creatinine Ratio. Adi Mitchell MD URINE Final Re sult [facility] [address] [place] [address], * FRUCTOSAMINE (08/17/2024 8:49 AM CDT) FRUCTOSAMINE 277 205 - 285 umol/L [facility] [place] [place], Blood BLOOD SPECIMEN / Unknown 08/17/2024 8:49 AM CDT 08/17/2024 8:52 AM CDT Narrative [facility] [place] [place] - 08/20/2024 12:01 AM CDT FASTING:YES FASTING: YES us Adi Mitchell MD SEND OUTS Final Re sult Performing Organization Address [facility] Co de Phone Number [facility] [place] [place] [address] [place] [address], [facility] [place] [place], [address] [place] [address] * (ABNORMAL) HEMOGLOBIN A1C (08/17/2024 8:49 AM CDT) HEMOGLOBIN A1C 7.7(H) <5.7 % [facility] Comment: For someone without known diabetes, a hemoglobin A1c value of 6.5% or greater indicates that they may have diabetes and this should be confirmed with a follow-up test. For someone with known diabetes, a value <7% indicates that their diabetes is well controlled and a value greater than or equal to 7% indicates suboptimal control. A1c targets should be individualized based on duration of diabetes, age, comorbid conditions, and other considerations. Currently, no consensus exists regarding use of hemoglobin A1c for diagnosis of diabetes for children. Blood BLOOD SPECIMEN / Unknown 08/17/2024 8:49 AM CDT 08/17/2024 8:52 AM CDT Narrative [facility] - 08/18/2024 5:08 AM CDT FASTING:YES FASTING: YES us Adi Mitchell MD CHEMISTRY Final Re sult Performing Organization Address City/[facility]/ZIP Co de Phone Number [facility] [address] [place] [address], [facility] [address] [place] [address] * LIPID PANEL W REFLEX MEASURED LDL (08/17/2024 8:49 AM CDT) Pathologist [facility] [place] CHOLESTEROL, TOTAL 140 <200 mg/dL [facility] HDL CHOLESTEROL 63 > OR = 40 mg/dL [facility] TRIGLYCERIDES 69 <150 mg/dL [facility] LDL-CHOLESTEROL 62 mg/dL (calc) [facility] Comment: Reference range: <100 Desirable range <100 mg/dL for primary prevention; <70 mg/dL for patients with CHD or diabetic patients with > or = 2 CHD risk factors. LDL-C is now calculated using the Marisol calculation, which is a validated novel method providing better accuracy than the Friedewald equation in the estimation of LDL-C. Mt SS et al. NICHOLE. 2013;310(19): 3163-8203 (http://education.The Paper Store/faq/QKE560) CHOL/HDLC RATIO 2.2 <5.0 (calc) [facility] NON HDL CHOLESTEROL 77 <130 mg/dL (calc) [employer] [facility] Comment: For patients with diabetes plus 1 major ASCVD risk factor, treating to a non-HDL-C goal of <100 mg/dL (LDL-C of <70 mg/dL) is considered a therapeutic option. Blood BLOOD SPECIMEN / Unknown 08/17/2024 8:49 AM CDT 08/17/2024 8:52 AM CDT Narrative [facility] - 08/18/2024 10:26 AM CDT FASTING:YES FASTING: YES Adi Mitchell MD CHEMISTRY Final Re sult [employer] [facility] [address] [place] [address], [facility] [address] [place] [address] * (ABNORMAL) BASIC METABOLIC PANEL (08/17/2024 8:49 AM CDT) [facility] GLUCOSE 118(H) 65 - 99 mg/dL [facility] Comment: Fasting reference interval For someone without known diabetes, a glucose value between 100 and 125 mg/dL is consistent with prediabetes and should be confirmed with a follow-up test. UREA NITROGEN (BUN) 23 7 - 25 mg/dL [facility] [facility] CREATININE 0.95 0.70 - 1.35 mg/dL [facility] EGFR 87 > OR = 60 mL/min/1. 73m2 [facility] BUN/CREATININE RATIO SEE NOTE: 6 - 22 (calc) [facility] Comment: Not Reported: BUN and Creatinine are within reference range. SODIUM 140 135 - 146 mmol/L [facility] POTASSIUM 4.5 3.5 - 5.3 mmol/L [facility] CHLORIDE 105 98 - 110 mmol/L [facility] CARBON DIOXIDE 26 20 - 32 mmol/L [facility] ELECTROLYTE BALANCE 9 7 - 17 mmol/L (calc) [facility] CALCIUM 9.5 8.6 - 10.3 mg/dL [facility] Blood BLOOD SPECIMEN / Unknown 08/17/2024 8:49 AM CDT 08/17/2024 8:52 AM CDT Narrative [facility] - 08/18/2024 10:26 AM CDT FASTING:YES FASTING: YES Adi Mitchell MD CHEMISTRY Final Re sult [employer] [facility] [address] [place] [address], [facility] [address] [place] [address] * ANTI HCV (11/27/2023 7:08 AM CDT) HEPATITIS C ANTIBODY Non-Reacti ve Non-React bianca 11/27/2023 2:35 PM CDT [facility] Comment:Please note, per www .CDC.gov: If a patient is known to be at high risk of HCV infection, or is symptomatic, and the physician's suspicion of HCV infection is high, HCV RNA testing is often employed and is of diagnostic value, even after an initial negative anti-HCV test result. Blood BLOOD SPECIMEN / Unknown Venipuncture / Unknown 11/27/2023 7:08 AM CDT 11/27/2023 7:08 AM CDT Rich Barrett MD SEND OUTS Final Res ult [facility] [address] [place] [address], * OCCULT BLOOD IFOBT STOOL (01/11/2020 11:08 AM CDT) STOOL BLOOD ,IFOBT Negative Negative 01/19/2020 12:17 PM TRIALS MANAGER [facility] Stool STOOL SPECIMEN / Unknown Non-Blood / Unknown 01/11/2020 11:08 AM CDT 01/17/2020 11:08 AM TRIALS MANAGER us Behzad Prieto MD LABORATORY Final Resu lt [facility] [address] [place] [address], from Last 3 Months or Most Recently Relevant to Health Maintenance Insurance [facility] [place] [address] Care Teams Neurodiagnostic Tech Relationship Specialty Start Date End Date Rich Barrett MD [address] [place] [address] [phone] PCP - General Family Practice 05/14/24 Adi Mitchell MD [address] [facility] [address] [place] [address] Endocrinology 11/27/22
--- NOTE | 2024-10-25 12:47 | ED.GENADULT ---
HPI - General Adult General Chief complaint: Unspecified Complaint, Adult Stated complaint: light headed, clammy feeling Time Seen by Provider: 10/25/24 12:33 Source: patient Mode of arrival: ambulatory Limitations: no limitations History of Present Illness HPI narrative: 69-year-old male presenting today after an episode of dizziness and clamminess. 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 He had to lay down. He states that after lying down for many minutes, the sensation did pass. Patient has a history of aortic valve sclerosis he is quite concerned that this has something to do with the episode today. He was not having any chest pain. He denies any recent illness. Appetite has been good. He had toast and liquids for breakfast today. He denies any weight loss. He is not short of breath. He denies headache. He denies focal neurologic deficits or difficulty walking. He denies any ringing in his ears or changes in his vision. He denies nausea or vomiting. Currently asymptomatic. Related Data Home Medications ?Medication ?Instructions ?Recorded ?Confirmed albuterol sulfate 90 mcg/actuation inhalation 10/25/24 aerosol inhaler atorvastatin 80 mg tablet 80 mg PO DAILY 10/25/24 10/25/24 beclomethasone dipropionate 80 2 inh inhalation BID 10/25/24 10/25/24 mcg/actuation HFA breath activated aerosol (Qvar RediHaler) empagliflozin 25 mg tablet 25 mg PO DAILY 10/25/24 10/25/24 (Jardiance) glipizide 10 mg tablet, extended 10 mg PO DAILY 10/25/24 10/25/24 release 24 hr insulin glargine-yfgn 100 unit/mL unit subcut 10/25/24 (3 mL) subcutaneous pen (Semglee (insulin glargine-yfgn) Pen) lisinopril 20 mg tablet 20 mg PO DAILY 10/25/24 10/25/24 metformin 1,000 mg tablet PO 10/25/24 Allergies Allergy/AdvReac Type Severity Reaction Status Date / Time No Known Drug Allergies Allergy Verified 10/25/24 12:24 Review of Systems Status of ROS: Reports: 10 or more systems reviewed and unremarkable except as noted in History and below Exam Narrative: Exam Narrative: Well-nourished well-developed patient in no acute distress. Alert and oriented. Answers questions appropriately. Mood and affect are appropriate. Thoughts are goal oriented and rational. No tangential or magical thinking noted. Patient speaks in full sentences without needing to catch his breath. Patient does not appear ill or toxic. HEENT: Normocephalic atraumatic. Pupils are equally round reactive to light. Extraocular muscles are intact. Conjunctivae are moist without any icterus noted. Moist mucous membranes. Posterior pharynx is normal. Neck is supple. Cardiovascular: Heart is regular rate and rhythm S1 and S2 are present with a loud 4/6 systolic murmur Lungs: Clear to auscultation bilaterally no wheezes rhonchi or rales are appreciated. Patient takes deep breaths without any discomfort. Abdomen: Soft and nontender nondistended with normal bowel sounds. Extremities: Bilateral lower extremities are without edema. Skin: Well perfused without any obvious rashes. Const: Vital Signs, click to edit/add: Vital Signs - 24 hr 10/25/24 12:18 10/25/24 12:24 10/25/24 12:55 Temperature 96.9 F L Pulse Rate [Right Pulse Oximeter] 64 Pulse Rate [orthos tatic lying] 67 Pulse Rate [orthos tatic sitting Left ] Pulse Rate [orthos tatic standing Lef t] Respiratory Rate 18 Blood Pressure [Ri ght Upper Arm] 170/77 H Blood Pressure [or thostatic lying Le ft Arm] 134/60 Blood Pressure [or thostatic sitting Left Arm] Blood Pressure [or thostatic standing Left Arm] Pulse Oximetry 98 95 Oxygen Delivery Me thod Room Air 10/25/24 13:26 10/25/24 13:28 Temperature Pulse Rate [Right Pulse Oximeter] Pulse Rate [orthos tatic lying] Pulse Rate [orthos tatic sitting Left ] 71 Pulse Rate [orthos tatic standing Lef t] 75 Respiratory Rate Blood Pressure [Ri ght Upper Arm] Blood Pressure [or thostatic lying Le ft Arm] Blood Pressure [or thostatic sitting Left Arm] 141/69 H Blood Pressure [or thostatic standing Left Arm] 138/68 Pulse Oximetry Oxygen Delivery Me thod Course Course ED Course: IV established and labs were drawn. No evidence of orthostatic hypotension. EKG, read by me, shows normal sinus rhythm with a left axis deviation, incomplete right bundle-branch block. Pulse 65. CBC shows slight bump in his white cell count at 11.3 77% neutrophils. VBG is normal. Lactate is elevated at 2.9. 1 L of normal saline ordered at this time. Normal troponin. Chemistries are unremarkable. Glucose 168. Normal LFTs. Urinalysis showing 2+ glucose and trace ketones. After 1 L of fluids lactate came down to 2.2. Patient remained asymptomatic while he was here. Vital Signs Vital signs: Initial Vital Signs Temperature 96.9 F L 10/25/24 12:18 Temperature Source Temporal Artery Scan 10/25/24 12:18 Pulse Rate 64 10/25/24 12:18 Pulse Rhythm Regular 10/25/24 12:18 Pulse Strength 3+ Normal 10/25/24 12:18 Respiratory Rate 18 10/25/24 12:18 Blood Pressure 170/77 H 10/25/24 12:18 Blood Pressure Mean 108 H 10/25/24 12:18 Blood Pressure Position Sitting 10/25/24 12:18 Pulse Oximetry 98 10/25/24 12:18 Oxygen Delivery Method Room Air 10/25/24 12:18 Vital Signs Temperature 96.9 F L 10/25/24 12:18 Pulse Rate 64 10/25/24 12:18 Respiratory Rate 18 10/25/24 12:18 Blood Pressure 170/77 H 10/25/24 12:18 Pulse Oximetry 98 10/25/24 12:18 Oxygen Delivery Method Room Air 10/25/24 12:18 Temperature 96.9 F L 10/25/24 12:18 Pulse Rate 75 10/25/24 13:28 Respiratory Rate 18 10/25/24 12:18 Blood Pressure 138/68 10/25/24 13:28 Pulse Oximetry 95 10/25/24 12:55 Oxygen Delivery Method Room Air 10/25/24 12:18 Medications Administered Medications: Discontinued Medications Generic Name Dose Route Start Last Admin Trade Name Freq PRN Reason Stop Dose Admin Sodium Chloride 1,000 mls @ 1,000 mls/hr 10/25/24 13:30 10/25/24 13:42 0.9 % Sodium Chloride 1000 Ml IV 10/25/24 14:29 1,000 mls/hr .Q1H WENDY Administration Medical Decision Making MDM Narrative Medical decision making narrative: 69-year-old male with an episode of lightheadedness that passed. Patient had an elevated lactate which came down with hydration. Patient will follow-up with primary care provider to discuss metformin dosing to see if that is to be changed given his elevated lactate today. Lab Data Lab results reviewed: Yes I reviewed the patient's lab results Labs: Lab Results 10/25/24 10/25/24 10/25/24 Range/Units 12:41 12:55 13:36 WBC 11.30 H (4.50-11.00) K/uL RBC 4.64 (4.30-5.90) m/uL Hgb 14.0 (13.5-17.5) gm/dL Hct 41.7 (37.0-53.0) % MCV 90 (80-100) fL MCH 30 (26-34) pg MCHC 34 (32-36) gm/dL RDW Coeff of John 13.0 (11.5-15.5) % Plt Count 269 (140-440) K/uL Neut % (Auto) 77.3 H (42.0-72.0) % Lymph % (Auto) 13.8 L (20-44) % [place] % (Auto) 7.0 (0.0-11.0) % Eos % (Auto) 1.3 (0.0-7.0) % Baso % (Auto) 0.3 (0.0-3.0) % Neut # (Auto) 8.70 H (1.7-7.0) K/uL Lymph # (Auto) 1.60 (0.90-2.90) K/uL [place] # (Auto) 0.80 (0.00-0.90) K/UL Eos # (Auto) 0.10 (0.00-0.50) K/uL Baso # (Auto) 0.00 (0.00-0.30) K/uL Abs Immat Gran (auto) 0.00 (0.00-0.30) K/uL Imm/Tot Granulo (auto) 0.3 % VBG pH 7.367 (7.32-7.43) VBG pCO2 45 (40-50) mmHG VBG pO2 39.4 (25-47) mmHG VBG HCO3 26 (21-28) mmol/L Sodium 136 (135-149) mmol/L Potassium 4.3 (3.6-5.1) mmol/L Chloride 102 (96-114) mmol/L Carbon Dioxide 25 (20-32) mmol/L Anion Gap 9 (7-15) mEq/L BUN 18 (7-30) mg/dL Creatinine 0.9 (0.5-1.5) mg/dL Estimated Creat Clear 75.30 Estimated GFR 93 ml/min Glucose 168 H (60-115) mg/dL Lactate 2.9 H (0.5-1.9) mmol/L Calcium 9.6 (8.4-10.6) mg/dL Magnesium 1.5 (1.5-2.6) mg/dL Total Bilirubin 0.5 (0.1-1.5) mg/dL Direct Bilirubin 0.2 (0.0-0.5) mg/dL AST 28 (12-35) U/L ALT 30 (4-50) U/L Alkaline Phosphatase 89 (40-150) U/L Troponin I < 0.01 (0.01-0.04) ng/mL Total Protein 7.0 (6.0-8.3) g/dL Albumin 4.2 (3.3-5.0) g/dL Urine Color Yellow (Yellow) Urine Appearance Clear (Clear) Urine pH 5.0 (5.0-8.5) Ur Specific [place] 1.015 (1.000-1.030) Urine Protein Negative (Negative) Urine Glucose (UA) 2+ A (Negative) Urine Ketones Trace A (Negative) Urine Blood Negative (Negative) Urine Nitrite Negative (Negative) Urine Bilirubin Negative (Negative) Urine Urobilinogen 0.2 (0.2-1.0) Ur Leukocyte Esterase Negative (Negative) Urine RBC 0-2 (0-2) Urine WBC 0-2 (0-5) Ur Squamous Epith Cells Few (None-Few) Urine Bacteria None (None) POC Troponin I 0.00 L (0.01-0.04) ng/ml 10/25/24 Range/Units 15:05 WBC (4.50-11.00) K/uL RBC (4.30-5.90) m/uL Hgb (13.5-17.5) gm/dL Hct (37.0-53.0) % MCV (80-100) fL MCH (26-34) pg MCHC (32-36) gm/dL RDW Coeff of John (11.5-15.5) % Plt Count (140-440) K/uL Neut % (Auto) (42.0-72.0) % Lymph % (Auto) (20-44) % [place] % (Auto) (0.0-11.0) % Eos % (Auto) (0.0-7.0) % Baso % (Auto) (0.0-3.0) % Neut # (Auto) (1.7-7.0) K/uL Lymph # (Auto) (0.90-2.90) K/uL [place] # (Auto) (0.00-0.90) K/UL Eos # (Auto) (0.00-0.50) K/uL Baso # (Auto) (0.00-0.30) K/uL Abs Immat Gran (auto) (0.00-0.30) K/uL Imm/Tot Granulo (auto) % VBG pH (7.32-7.43) VBG pCO2 (40-50) mmHG VBG pO2 (25-47) mmHG VBG HCO3 (21-28) mmol/L Sodium (135-149) mmol/L Potassium (3.6-5.1) mmol/L Chloride (96-114) mmol/L Carbon Dioxide (20-32) mmol/L Anion Gap (7-15) mEq/L BUN (7-30) mg/dL Creatinine (0.5-1.5) mg/dL Estimated Creat Clear Estimated GFR ml/min Glucose (60-115) mg/dL Lactate 2.2 H (0.5-1.9) mmol/L Calcium (8.4-10.6) mg/dL Magnesium (1.5-2.6) mg/dL Total Bilirubin (0.1-1.5) mg/dL Direct Bilirubin (0.0-0.5) mg/dL AST (12-35) U/L ALT (4-50) U/L Alkaline Phosphatase (40-150) U/L Troponin I (0.01-0.04) ng/mL Total Protein (6.0-8.3) g/dL Albumin (3.3-5.0) g/dL Urine Color (Yellow) Urine Appearance (Clear) Urine pH (5.0-8.5) Ur Specific [place] (1.000-1.030) Urine Protein (Negative) Urine Glucose (UA) (Negative) Urine Ketones (Negative) Urine Blood (Negative) Urine Nitrite (Negative) Urine Bilirubin (Negative) Urine Urobilinogen (0.2-1.0) Ur Leukocyte Esterase (Negative) Urine RBC (0-2) Urine WBC (0-5) Ur Squamous Epith Cells (None-Few) Urine Bacteria (None) POC Troponin I (0.01-0.04) ng/ml ECG Data Attestation: I personally reviewed and interpreted this ECG as follows: Discharge Plan Discharge Clinical Impression: Light-headed, Dehydration Patient Disposition: Home, Self-Care Condition: Improved Additional Instructions: Follow-up with her primary care provider to discuss your elevated lactate level. It was 2.9 a came down to 2.2 after 1 L of fluid. Elevated lactate can be seen with the use of metformin. Your workup today was otherwise unremarkable. We will send you home with a copy of all your lab work to share with your doctor. Prescriptions: No Action atorvastatin 80 mg tablet 80 mg PO DAILY glipizide 10 mg tablet extended release 24hr 10 mg PO DAILY lisinopril 20 mg tablet 20 mg PO DAILY metformin 1,000 mg tablet PO albuterol sulfate 90 mcg/actuation HFA aerosol inhaler inhalation Jardiance 25 mg tablet 25 mg PO DAILY Qvar RediHaler 80 mcg/actuation HFA aerosol breath activated 2 inh inhalation BID insulin glargine-yfgn [Semglee(insulin glarg-yfgn)Pen] 100 unit/mL (3 mL) insulin pen SUBCUT Patient Comments: [NO ORIGINAL SIG] Follow Up/Referrals: Provider,Not a Local [Primary Care Provider, Family Practice] Stand Alone Forms: [employer] Info Instructions Procedures ABG Interpretation ABG Results: 10/25/24 12:55 VBG pH 7.367 VBG pCO2 45 VBG pO2 39.4 VBG HCO3 26
[2024-10-25 13:10] LABS: HCO3 VBG 26 mmol/L (21-28); Hematocrit 41.7 % (37.0-53.0); Hemoglobin* 14.0 gm/dL (13.5-17.5); Immature Granulocytes Abs Auto 0.00 K/uL (0.00-0.30); Immature Granulocytes Pct Auto 0.3 %; Lactate* 2.9 mmol/L (0.5-1.9); Lymphocytes Absolute Auto 1.60 K/uL (0.90-2.90); Mean Corpuscular HGB Conc 34 gm/dL (32-36); Mean Corpuscular Hemoglobin 30 pg (26-34); Mean Corpuscular Volume 90 fL (80-100); PCO2 VBG 45 mmHG (40-50); PO2 VBG 39.4 mmHG (25-47); RDW Coefficient of Variation % 13.0 % (11.5-15.5); Red Blood Count 4.64 m/uL (4.30-5.90); Slide Review Reflex No; White Blood Count* 11.30 K/uL (4.50-11.00); pH VBG 7.367 (7.32-7.43)
[2024-10-25 13:14] LABS: Troponin, Point-of-Care* 0.00 ng/ml (0.01-0.04)
[2024-10-25 13:49] LABS: Appearance Urine Clear (Clear)
[2024-10-25 14:00] LABS: Albumin* 4.2 g/dL (3.3-5.0); Chloride* 102 mmol/L (96-114)
[2024-10-25 14:01] LABS: Potassium* 4.3 mmol/L (3.6-5.1); Sodium* 136 mmol/L (135-149)
[2024-10-25 14:03] LABS: Anion Gap 9 mEq/L (7-15); Blood Urea Nitrogen* 18 mg/dL (7-30); Carbon Dioxide* 25 mmol/L (20-32); Creatinine* 0.9 mg/dL (0.5-1.5); Est. Creatinine Clearance* 75.30; Estimated Glomerular Filt Rate 93 ml/min; Total Protein* 7.0 g/dL (6.0-8.3)
[2024-10-25 14:04] LABS: Alanine Aminotransferase* 30 U/L (4-50); Alkaline Phosphatase* 89 U/L (40-150); Aspartate Amino Transferase* 28 U/L (12-35); Bilirubin Direct* 0.2 mg/dL (0.0-0.5); Bilirubin Total* 0.5 mg/dL (0.1-1.5); Calcium* 9.6 mg/dL (8.4-10.6); Glucose* 168 mg/dL (60-115)
[2024-10-25 17:38] LABS: Lactate* 2.2 mmol/L (0.5-1.9)
== END 2024-10-25 16:00 | disposition home or self-care (01) ==
PROVIDERS: Emergency Provider Family Medicine; PCP Family Medicine
DX: R42 Dizziness and giddiness (principal); E86.0 Dehydration
CPT/HCPCS: 36415; 80048; 80076; 81001; 82803; 83605; 83735; 84484; 85025; 87086; 94761; 99284; J7030